=== PATIENT | female | born 1940 | race Caucasian/White ===

== ENCOUNTER 2016-10-06 13:10 | Inpatient (IN) | payer MEDICARE, BC ==
[~2016-10-06] VITALS: Ht 167.6 cm; Wt 63.4 kg
[~2016-10-06 13:10] MED LIST: BAYER CHEWABLE81 MG PO; CALCIUM 600+D T1 TA1 PO; CO Q-10100 MG PO; LIPITOR20 MG PO; MULTIPLE VITAMI1 TA1 PO; PRILOSEC20 MG PO
--- NOTE | 2016-10-06 16:02 | NUR ---
AMBULATES WITH HOSPITAL STAFF TO ROOM WITH DAUGHTER. DENIES NEEDS AT PRESENT TIME. WHEN I WALKED INTO THE ROOM SHE HAD JUST USED THE RESTROOM, INSTRUCTED NEED IN UA AND CULTURE, NEED TO PLACE MARADIAGA CATH. PATIENT IS AWARE OF THIS. WILL ADMIT.
[2016-10-06] MEDS ORDERED: CELEXA20 MG PO (16:12)
[2016-10-06] MEDS ORDERED: CULTURELLE1 CAP PO (16:12)
[2016-10-06] MEDS ORDERED: RED YEAST RICE600 MG PO (16:13)
[2016-10-06 16:43] VITALS: BP 117/81; Ht 167.6 cm; Wt 63.4 kg
[2016-10-06 16:54] LABS: EOSINOPHILS 3.1 % (0-7); HEMATOCRIT 34.1 % (36.0-48.0); HEMOGLOBIN 10.6 g/dL (12-16); IMMATURE GRANULOCYTES 0.4 % (0-5); LYMPHOCYTES 21.9 % (15-50); MCH 27.6 pg (26.0-34.0); MCHC 31.1 g/dL (31.0-37.0); MCV 88.8 fL (80.0-100.0); MEAN PLATELET VOLUME 10.4 fL (7.4-10.4); MONOCYTES 15.7 % (2-11); NEUTROPHILS 57.9 % (40-80); PLATELET COUNT 252 10x3/uL (130-400); RBC 3.84 10x6/uL (4.00-5.40); RDW 14.1 % (11.5-14.5); WBC 5.2 10x3/uL (4.8-10.8)
[2016-10-06 17:29] LABS: APPEARANCE CLEAR (CLEAR); BILIRUBIN NEGATIVE (NEGATIVE); COLOR YELLOW (YELLOW); GLUCOSE NEGATIVE (NEGATIVE); KETONE NEGATIVE (NEGATIVE); LEUKOCYTE ESTERASE NEGATIVE (NEGATIVE); NITRITE NEGATIVE (NEGATIVE); PROTEIN NEGATIVE (NEGATIVE); UROBILINOGEN NORMAL (NORMAL)
[2016-10-06 17:48] LABS: ALBUMIN 2.8 g/dL (3.4-5.0); ANION GAP 13.2 mmol/L (8-16); BILIRUBIN - TOTAL 0.28 mg/dL (0.2-1.3); CALCIUM 8.9 mg/dL (8.5-10.1); CREATININE - SERUM 1.3 mg/dL (0.6-1.3); POTASSIUM - SERUM 4.2 mmol/L (3.5-5.1); PROTEIN - SERUM 5.2 g/dL (6.4-8.2); THYROID STIMULATING HORMONE 3.51 uIU/mL (0.36-3.74)
--- NOTE | 2016-10-06 18:21 | NUR ---
ON HEART MONITOR SHOWING SR, HR 68. BILATERAL SCD'S PLACED ORDERED. ON BEDREST.
--- NOTE | 2016-10-06 19:30 | NUR ---
IN BED VISITING WITH DAUGHTER AT BEDSIDE. ALERT AND ORIENTED X3, RESP EVEN AND UNLAB ON ROOM AIR, DOES HAVE O2 @L NC IF NEEDED. TELEMETRY IN PLACE SHOWING HR SR PER FIG WASHER. LEFT AC IV INTACT WITH NO R/S NOTED AT SITE. IV FLUID INFUSING W/O DIFF VIA PUMP AT 40CC/HR. MAURA WELL. MARADIAGA CATH INTACT AND PATENT WITH YELLOW URINE NOTED IN BAG. BILAT SCDS IN USE TO LOWER LEGS, MAURA WELL. VERBALIZED UNDERSTANDING ABOUT USING C/L FOR ASSISTANCE. 24 HOUR URINE IN PROGRESS WITH MARADIAGA BAG RESTING IN ICE AT BEDSIDE. HOB UP SR UP X2, C/L IN REACH. CONTINUE TO MONITOR.
[2016-10-06 20:00] VITALS: BP 157/67
[2016-10-07] VITALS: BP 138/76
--- NOTE | 2016-10-07 01:34 | NUR ---
AWAKE ALERT,WORRIED THAT MARADIAGA CATH MAY BE LEAKING. PLACEMENT CHECKED, NO LEAKAGE NOTED AT THIS TIME. MAURA WELL. DENIES OTHER NEEDS. HOB FLAT, SR UP X2, C/L IN REACH. BOX ALARM ATTACHED AND WORKING, YELLOW BAND IS ON WRIST. BED IS IN LOWEST POSITION AND LOCKED. MARADIAGA BAG REMAINS ON ICE. CONTINUE TO MONITOR.
[2016-10-07 04:00] VITALS: BP 135/66
[2016-10-07 06:11] LABS: ANION GAP 11.3 mmol/L (8-16); CALCIUM 8.4 mg/dL (8.5-10.1); CREATININE - SERUM 1.4 mg/dL (0.6-1.3); POTASSIUM - SERUM 4.3 mmol/L (3.5-5.1)
--- NOTE | 2016-10-07 07:21 | NUR ---
PT SITTING UP IN BED DENIES NEEDS WILL CONT TO MONITOR.
[2016-10-07 07:49] VITALS: BP 133/66
--- NOTE | 2016-10-07 09:38 | NUR ---
TALKED TO MAMIE IN [facility]. THE ORDER FOR THE RENAL SCAN WAS PUT IN FOR THIS AFTERNOON. DR PLATT WANTED THE RENAL SCAN IN THE AM. CALLED TO ASK IF WE COULD RESCHEDULE SHE SAID SHE WOULD CALL ME BACK.
[2016-10-07 12:36] VITALS: BP 125/64
--- NOTE | 2016-10-07 14:49 | NUR ---
Patient Name: DIANA GRIMALDO Admission Status: Elective Accout number: [id number] Admission Date: 10-06-2016 : 1940 Admission Diagnosis: Attending: HEENA Current LOS: 1 Anticipated DC Date: 10-08-2016 Planned Disposition: Home Primary Insurance: MEDICARE A & B Discharge Planning Comments: * Is the patient Alert and Oriented? Yes 0 * How many steps to enter\exit or inside your home? NONE 0 * PCP DR. PLATT 0 * Pharmacy [facility] 0 * Preadmission Environment Home Alone 0 * ADLs Independent 0 * Equipment None 0 * Other Equipment [facility] - [phone] 0 * List name and contact numbers for known caregivers / representatives who currently or will assist patient after discharge: ENEDINA CUELLO, DAUGHTER, 0 * Community resources currently utilized None 0 * Please name any agencies selected above. NONE 0 * Additional services required to return to the preadmission environment? No 0 * Can the patient safely return to the preadmission environment? Yes 0 * Has this patient been hospitalized within the prior 30 days at any hospital? No 0 CM MET WITH PT AND DAUGHTER IN ROOM TO DISCUSS DISCHARGE PLANNING AND NEEDS. PT REPORTS LIVING AT HOME INDEPENDENTLY AND ALONE. PT HAS NO MEDICAL EQUIPMENT AND NO OUTSIDE SERVICES ASSISTING IN THE HOME. CM DISCUSSED AVAILABILITY OF HOME HEALTH, REHAB SERVICES AND MEDICAL EQUIPMENT. PT DENIES NEED OF HOME HEALTH OR REHAB SERVICES; PT REPORTS SHE WILL BE LEARING TO SELF CATHETER FROM THE NURSE BEFORE GOING HOME. PT HAS NO PREFERENCE ON PROVIDER FOR HER CATHETERS. PT REPORTS HER DAUGHTER WILL PICK HER UP FOR DISCHARGE HOME. CM CALLED [facility] IN [facility], , WAS ADVISED THEY DO NOT STOCK 16 LIBYAN CATHETERS AND WOULD NEED A DOCTORS ORDER TO ORDER THEM AND IT WOULD BE NEXT TUESDAY AT THE EARLIEST TO GET THEM IN. CM CALLED [facility], [facility], [facility] AND [facility], [place], NONE OF WHICH PROVIDE HOME CATHETERS. CM CALLED [employer] WHO STOCKS 16 LIBYAN CATHETERS IN BOXES OF 30 AND REQUIRE CHART NOTES DETAILING REASON FOR NEED, SIGNED PRESCRIPTION AND WILL REQUIRE A DETAILED WRITTEN ORDER SIGNED FOR INSURANCE AUTHORIZATION THAT [facility] WILL SUPPLY FOR SIGNATURE. CM SPOKE TO LOAN SERVICING SPECIALIST WHO SPOKE TO DR. MIN'S NURSE AND OBTAINED A SUPPLY OF 30 CATHETERS AND LUBRICANT FOR PT'S USE AT HOME. CM TO FOLLOW AND ASSIST NEEDED. Air Conditioning Coil Assembler: Yaw Luna
--- NOTE | 2016-10-07 16:18 | NUR ---
WENT OVER SELF CATH TEACHING. SPENT >30 MINUTES TALKING WITH PT AND PT DAUGHTER. PT VERBALIZES UNDERSTANDING ALSO GIVEN WRITTEN INSTRUCTIONS ON HOW TO SELF CATH. PT TOLD ME THAT LAST NIGHT THE EQUIPMENT WORKER DUMPED OUT HER URINE IN THE TOILET, SHE TOLD DAYA RN ON DUTY. NOTHING WAS DONE. PAGING MICHAEL MENDOZA FURNITURE SERVICER FOR RENAL TO SEE WHAT THEY WANT TO DO.
[2016-10-07 16:21] VITALS: BP 145/68
--- NOTE | 2016-10-07 16:30 | NUR ---
TALKED WITH MICHAEL MENDOZA. SAID TO RESTART 24 HOUR URINE. WILL BE FINSIHED TONIGHT AT 9:30 PM SINCE URINE WAS LOST.
--- NOTE | 2016-10-07 18:18 | NUR ---
PT SITTING UP IN BED DENIES NEEDS. EXPLAINED TO PT THAT CATHETER NEEDS TO STAY IN UNTIL 24 HOUR URINE COMPLETED AT 9:30 PM PT VERBALIZES UNDERSTANDING.
[2016-10-07 20:00] VITALS: BP 145/74
--- NOTE | 2016-10-07 21:40 | NUR ---
10 cc CLEAR FLUID REMOVED FROM MARADIAGA CATH, BULB DEFLATED AND CATH REMOVED AT THIS TIME. CATH INTACT UPON REMOVAL. PT MAURA WELL. 24 HOUR URINE COMPLETED AND SENT TO LAB AT THIS TIME.
[2016-10-08] VITALS: BP 121/67
[2016-10-08 04:00] VITALS: BP 139/85
--- NOTE | 2016-10-08 06:16 | NUR ---
PT HAS VOIDED 3 TIMES SINCE MARADIAGA REMOVED. PT ABLE TO DO THE STRAIGHT CATH WITHOUT COMPLICATION. APPROX 50 CC OUT POST VOID RESIDUAL EACH TIME. WILL CONT TO MONITOR
[2016-10-08 06:40] LABS: ANION GAP 11.7 mmol/L (8-16); CALCIUM 8.5 mg/dL (8.5-10.1); CARBON DIOXIDE 28.2 mmol/L (21.0-32.0); CREATININE - SERUM 1.3 mg/dL (0.6-1.3); POTASSIUM - SERUM 3.9 mmol/L (3.5-5.1)
--- NOTE | 2016-10-08 07:33 | NUR ---
PT SITTING UP IN BED DENIES NEEDS DAUGHTER AT BEDSIDE WILL CONT TO MONITOR.
[2016-10-08 08:13] VITALS: BP 157/71
--- NOTE | 2016-10-08 10:43 | NUR ---
WENT OVER DC PAPERWORK WITH PT. PT VERBALIZES UNDERSTANDING. DC TELE. DC PIV WITH CATHETER TIP INTACT. VOLUNTEER WHEELED PT OUT TO FRONT ENTRANCE.
--- NOTE | 2016-10-08 10:53 | NUR ---
Patient Name: DIANA GRIMALDO Encounter No: [id number] : 1940 Primary Insurance: MEDICARE A & B Anticipated DC Date: 10-08-2016 Planned Disposition: Home DCP follow-up note: CM MET WITH PT IN ROOM TO DISCUSS DISCHARGE NEEDS AND PLANNING. CM DISCUSSED AVAILABILITY OF HOME HEALTH, REHAB SERVICES AND MEDICAL EQUIPMENT. PT DENIES DISCHARGE NEEDS AND HAS CATHETERS PROVIDED BY THE DOCTORS OFFICE IN SUFFICIENT SUPPLY FOR TID CATH UNTIL HER FOLLOWUP UROLOGY APPOINTMENT 10-15-16. DAUGHTER TO TRANSPORT HOME AT DISCHARGE. IMPORTANT MESSAGE FROM MEDICARE PROVIDED AND EXPLAINED. Yaw Luna, CASE MANAGEMENT
--- NOTE | 2016-10-11 07:41 | DS ---
PATIENT:DIANA DAVID :[birth year] MEDICAL RECORD: [id number] DISCHARGE SUMMARY ADMISSION DATE: 10/06/16 DISCHARGE DATE: 10/08/16 HISTORY OF PRESENT ILLNESS: Ms. David is a very pleasant 76-year-old white female that I follow with hypertension. She has had no recent hospitalizations. She does have a history of urinary incontinence, has been evaluated in the past by urology at [facility] with no therapy and has been seen by me on a yearly basis. She appeared in the office this week with a complaint of increasing urinary urgency, rising creatinine, worsening edema and examination in the office revealed a bladder palpable to the umbilicus and she was admitted with presumed obstructive uropathy. HOSPITAL COURSE: The patient on CT had marked hydronephrosis bilaterally with marked bladder distention. Dowell catheter was placed and urinary drainage was successful. Creatinine did improve and her last creatinine was 1.3. Seen by Dr. Newman of neurology and he recommended self cath and the patient did well with instruction with this and will go home with a TID self cath schedule. During this time, she had an echocardiogram that was negative with no evidence of heart disease as a cause of her edema. She had a mildly elevated urinary protein. She was ambulatory at the time of discharge, we put her on timed cath schedule and she was otherwise back to baseline at the time of discharge. DISCHARGE DIAGNOSES: 1. Obstructive uropathy due to presumed neurogenic bladder. 2. Acute renal insufficiency on the basis of obstructive uropathy. 3. Hypertension. 4. Edema. 5. Acute chronic kidney disease stage III. PLAN: The patient will be discharged today. I placed her on timed self caths on a t.i.d. scheduled. She will resume her home medications. She will follow up with Dr. Newman and myself in the office. All the above was reviewed with the patient and her daughter. TRANSINT:[id number] Voice Confirmation ID: [id number] DOCUMENT ID: [id number] FRANSISCO PLATT MD at 0741 CC: [id number] DICTATION DATE: 10/08/16 0808 WELL REACTIVATOR OPERATOR: 10/09/16 0027 DIS IN 10/08/16 [id number] [place] [address]
--- NOTE | 2016-10-18 10:08 | EC ---
PATIENT:DIANA GRIMALDO DATE OF SERVICE: 10/06/16 SEX: F MEDICAL RECORD: [id number] DATE OF : [birth year] LOCATION:D.M2 D.213 AGE OF PATIENT: 76 ADMISSION DATE: 10/06/16 REFERRING PHYSICIAN: INTERPRETING PHYSICIAN: MAURICE MOYA MD ECHOCARDIOGRAM REPORT ECHO CHARGES 4 ECHO COMPLETE CLINICAL DIAGNOSIS: EDEMA/EFFUSIONS ECHOCARDIOGRAPHIC MEASUREMENTS (adult normal given) AC root (d.<3.7cm) 3.2 LV Septum d (<1.2 cm> 1.4 Valve Excursion 1.6 LV Septum (systole) 1.6 Left Atria (s.<4.0cm> 3.8 LVPW d(<1.2cm) 1.2 RV (d.<2.3cm) 2.9 LVPW (sytole) 1.7 LV diastole(<5.6CM) 5.6 MV E-F(>70mm/sec) LV systole 3.5 LVOT Diameter 1.5 MV exc.(>10mm) 0.9 Est.ejection fraction (50-75%) Pericardial Effusion N DOPPLER: LVIT A 122 E 102 LA RVSP 38 LVOT 133 AOP1/2T Asc. Ao 171 RVOT 76 RA PA 119 AV Gradient Peak 11.65 AV Mean 5.82 AV Area 1.9 MV Gradient Peak MV Mean MV Area COMMENTS: Forestry Support Specialist: Tj LE Nursing Scheduler:2 Dr. Blackmon TAPE# PACS DATE OF SERVICE: 10/07/2016 Echocardiogram FINDINGS: 1. Left ventricular chamber size is within normal limits. Left ventricular systolic function is normal. Overall ejection fraction estimated at 60%. 2. Left atrium, right atrium, and right ventricular chamber sizes are within normal limits. 3. Valvular structures have normal structure and motion. ECHOCARDIOGRAM REPORT [id number] DIANA GRIMALDO 4. Doppler interrogation reveals mild mitral regurgitation, mild tricuspid regurgitation, no other valvular insufficiency or stenosis and pulmonary systolic pressure is normal estimated at 38 mmHg. 5. No evidence of pericardial effusion or left ventricular thrombus. TRANSINT:[id number] Voice Confirmation ID: [id number] DOCUMENT ID: [id number] MAURICE MOYA MD at 1008 CC: [id number] DICTATION DATE: 10/07/16 1202 DEICER INSPECTOR PNEUMATIC: 10/07/16 1712 DIS IN 10/08/16 [facility] [address] [place] [address]
== END 2016-10-08 10:55 | disposition home or self-care (01) | DRG 699 ==
LOC: D.CT 13:10 → D.M2 15:41 → D.SDCHOLD 15:41 → D.M2 15:47
PROVIDERS: Urology; ADMIT Internal Medicine Nephrology
PROC: 0T9B70Z Drainage of Bladder with Drainage Device, Via Natural or Artificial Opening (ICD-10-PCS; principal; 2016-10-06)
DX: N31.9 Neuromuscular dysfunction of bladder, unspecified (principal); N13.30 Unspecified hydronephrosis; N28.9 Disorder of kidney and ureter, unspecified; I12.9 Hypertensive chronic kidney disease with stage 1 through stage 4 chronic kidney disease, or unspecified chronic kidney disease; N18.3 Chronic kidney disease, stage 3 (moderate); F41.9 Anxiety disorder, unspecified; F32.9 Major depressive disorder, single episode, unspecified; K59.09 Other constipation

== ENCOUNTER → 2016-10-11 16:15 | Outpatient (CLI) | payer MEDICARE, BC ==
[2016-10-06 16:43] VITALS: BMI 22.0
[~2016-10-11 16:15] MED LIST changes: +CARAFATE1 G PO; +CELEXA20 MG PO; +CULTURELLE1 CAP PO; +FERROUS SULFAT325 MG PO; +LEVAQUIN250 MG PO; +LEVSIN/ANASP0.125 MG PO; +RED YEAST RICE600 MG PO
== END | disposition home or self-care (01) ==
LOC: D.LABREF 16:15
DX: R31.9 Hematuria, unspecified (principal)

== ENCOUNTER 2016-10-13 18:36 | Inpatient (IN) | payer MEDICARE, BC ==
[~2016-10-13] VITALS: Ht 167.6 cm; Wt 61.5 kg
[~2016-10-13 18:36] MED LIST changes: -CARAFATE1 G PO; -FERROUS SULFAT325 MG PO; -LEVAQUIN250 MG PO; -LEVSIN/ANASP0.125 MG PO
[2016-10-13 20:57] LABS: APPEARANCE HAZY (CLEAR); BILIRUBIN NEGATIVE (NEGATIVE); COLOR YELLOW (YELLOW); GLUCOSE NEGATIVE (NEGATIVE); KETONE NEGATIVE (NEGATIVE); LEUKOCYTE ESTERASE 2+ (NEGATIVE); NITRITE NEGATIVE (NEGATIVE); PROTEIN TRACE mg/dL (NEGATIVE); SPECIFIC GRAVITY 1.015 (1.005-1.020); UROBILINOGEN NORMAL (NORMAL)
[2016-10-13 20:59] LABS: BACTERIA MODERATE /hpf (NONE SEEN); EPITHELIAL CELLS 0-5 /hpf (0-5)
[2016-10-13 23:08] LABS: BASOPHILS 0.3 % (0.0-2.0); EOSINOPHILS 0.5 % (0-7); HEMOGLOBIN 9.4 g/dL (12-16); IMMATURE GRANULOCYTES 0.3 % (0-5); LYMPHOCYTES 6.5 % (15-50); MCH 27.9 pg (26.0-34.0); MCHC 32.4 g/dL (31.0-37.0); MCV 86.1 fL (80.0-100.0); MEAN PLATELET VOLUME 10.5 fL (7.4-10.4); MONOCYTES 8.5 % (2-11); NEUTROPHILS 83.9 % (40-80); RBC 3.37 10x6/uL (4.00-5.40); RDW 14.4 % (11.5-14.5); WBC 3.9 10x3/uL (4.8-10.8)
[2016-10-13 23:11] LABS: PLATELET COUNT 188 10x3/uL (130-400)
[2016-10-13 23:29] LABS: ALBUMIN 2.2 g/dL (3.4-5.0); ANION GAP 15.2 mmol/L (8-16); BILIRUBIN - TOTAL 0.22 mg/dL (0.2-1.3); CALCIUM 8.1 mg/dL (8.5-10.1); CARBON DIOXIDE 20.8 mmol/L (21.0-32.0); CREATININE - SERUM 1.6 mg/dL (0.6-1.3); PROTEIN - SERUM 5.2 g/dL (6.4-8.2)
--- NOTE | 2016-10-13 23:45 | NUR ---
PT ARRIVED TO FLOOR FROM ER TO ROOM 2121. ALERT/ORIENTED. ADMISSION ASSESSMENT AND HISTORY COMPLETED. HOME MEDS REVIEWED.
[2016-10-14] VITALS (7 sets, daily range): BP systolic 88–109; BP diastolic 50–56; BMI 21.9
--- NOTE | 2016-10-14 02:55 | NUR ---
INITIAL DOSE OF IV LEVAQUIN UP AND INFUSING. PT RESTING. DAUGHTER INITIALLY STAYING THE NIGHT, THEN DECIDED TO GO HOME.
--- NOTE | 2016-10-14 06:22 | NUR ---
MARADIAGA PATENT TO BEDSIDE DRAIN BAG, NO HEMATURIA NOTED, YELLOW URINE/CLOUDY. ASSISTED PT UP AND TO THE BATHROOM TO TRY AND HAVE A BM.
--- NOTE | 2016-10-14 09:53 | NUR ---
TELEMETRY SR. HR 74. SCDS APPLIED BILAT PER ORDER. WILL CONT. PLAN OF CARE.
[2016-10-14 10:28] LABS: % SATURATION 4 % (15-55); IRON 9 ug/dl (35-150); TOTAL IRON BIND CAPACITY 222 ug/dl (260-445); UNSAT IRON BIND CAPACITY 213 ug/dl (150-375)
--- NOTE | 2016-10-14 19:40 | NUR ---
RESUMED CARE OF PT, LYING IN BED RESPIRATIONS EVEN AND UNLABORED ON ROOM AIR. PLAN OF CARE DISCUSSED. MARADIAGA TO GRAVITY. 69 SR ON TELEMETRY. CALL LIGHT IN REACH. WILL CONTINUE TO MONITOR. SEE NURSE ASSESSMENT.
[2016-10-15] VITALS: BP 121/73
--- NOTE | 2016-10-15 03:34 | NUR ---
IV OUT WITH TIP INTACT. 20 GAUGE TO LEFT FOREARM X 2 STICKS. LEVAQUIN INFUSING @ 50ML/HR.
--- NOTE | 2016-10-15 03:36 | NUR ---
BIOLOGY MANAGER AT BEDSIDE TO OBTAIN VITALS, CALL LIGHT IN REACH. WILL CONTINUE WITH PLAN OF CARE.
[2016-10-15 04:00] VITALS: BP 121/73
[2016-10-15 06:01] LABS: BASOPHILS 0.9 % (0.0-2.0); HEMATOCRIT 29.7 % (36.0-48.0); HEMOGLOBIN 9.4 g/dL (12-16); IMMATURE GRANULOCYTES 0.5 % (0-5); LYMPHOCYTES 17.2 % (15-50); MCH 27.7 pg (26.0-34.0); MCHC 31.6 g/dL (31.0-37.0); MCV 87.6 fL (80.0-100.0); MEAN PLATELET VOLUME 10.8 fL (7.4-10.4); MONOCYTES 14.2 % (2-11); NEUTROPHILS 64.2 % (40-80); PLATELET COUNT 205 10x3/uL (130-400); RBC 3.39 10x6/uL (4.00-5.40); RDW 14.8 % (11.5-14.5)
[2016-10-15 06:07] LABS: WBC 5.7 10x3/uL (4.8-10.8)
[2016-10-15 06:37] LABS: ANION GAP 13.9 mmol/L (8-16); CALCIUM 8.4 mg/dL (8.5-10.1); CARBON DIOXIDE 22.5 mmol/L (21.0-32.0); CREATININE - SERUM 1.4 mg/dL (0.6-1.3); POTASSIUM - SERUM 4.4 mmol/L (3.5-5.1)
--- NOTE | 2016-10-15 06:40 | NUR ---
SHOWERED AND LINENS CHANGED. NO CHANGES FROM PREVIOUS ASSESSMENT.
--- NOTE | 2016-10-15 09:40 | NUR ---
TELEMETRY SR. IV PATENT. MARADIAGA INTACT. NPO FOR SURGERY. WILL CONT. PLAN OF CARE.
[2016-10-15 09:52] VITALS: BP 113/60
[2016-10-15 10:20] LABS: FOLATE (FOLIC ACID) - SERUM >20.0 ng/mL (>3.0)
[2016-10-15 13:19] VITALS: BP 119/71
--- NOTE | 2016-10-15 13:20 | NUR ---
PRE-OPS GIVEN. TO OR BY STRETCHER.
[2016-10-15 13:29] VITALS: Ht 167.6 cm; Wt 61.5 kg
--- NOTE | 2016-10-15 13:38 | NUR ---
Patient Name: DIANA GRIMALDO Admission Status: ER Accout number: [id number] Admission Date: 10-14-2016 : 1940 Admission Diagnosis:TUBULO-INTERSTITIAL NEPHRITIS, NOT SPCF ACUTE OR CHR Attending: BENJI Current LOS: 1 Anticipated DC Date: Planned Disposition: Home Primary Insurance: MEDICARE A & B Discharge Planning Comments: * Is the patient Alert and Oriented? Yes 0 * How many steps to enter\exit or inside your home? NONE 0 * PCP DR. PLATT 0 * Pharmacy [facility] ON [address] 0 * Preadmission Environment Home Alone 0 * ADLs Independent 0 * Equipment Catheter Supplies 0 * Other Equipment [facility] - MEDICAL EQUIPMENT PROVIDER PREFERENCE 0 * List name and contact numbers for known caregivers / representatives who currently or will assist patient after discharge: ENEDINA CUELLO, DTR, 0 * Community resources currently utilized None 0 * Please name any agencies selected above. NONE 0 * Additional services required to return to the preadmission environment? No 0 * Can the patient safely return to the preadmission environment? Yes 0 * Has this patient been hospitalized within the prior 30 days at any hospital? Yes 0 CM MET WITH PT IN ROOM TO DISCUSS DISCHARGE PLANNING AND NEEDS. PT REPORTS LIVING AT HOME INDEPENDENTLY AND ALONE. PT HAS CATHETER SUPPLIES, PT PREFERS [facility] IN [facility] FOR ANY NEEDED MEDICAL EQUIPMENT. PT HAS NO OUTSIDE SERVICES ASSISTING IN THE HOME. CM DISCUSSED AVAILABILITY OF HOME HEALTH, REHAB SERVICES AND MEDICAL EQUIPMENT. PT DENIES DISCHARGE NEEDS, REPORTS HER FAMILY WILL PICK HER UP FOR DISCHARGE HOME. PT PLANS TO DISCHARGE HOME, DENIES DISCHARGE NEEDS AT THIS TIME. CM TO FOLLOW AND ASSIST NEEDED. Support Services Rep: Yaw Luna
--- NOTE | 2016-10-15 15:05 | NUR ---
100CC OF PINK CLEAR URINE IN MARADIAGA BAG ON ADMIT
--- NOTE | 2016-10-15 15:59 | NUR ---
BACK FROM OR. VS WNL. WILL CONT. PLAN OF CARE.
[2016-10-15 16:38] VITALS: BP 171/75
--- NOTE | 2016-10-15 19:00 | NUR ---
RECEIVED REPORT AND ASSUMED PT CARE FROM DAY SHIFT NURSE @ THIS TIME.
[2016-10-15 20:00] VITALS: BP 119/66
[2016-10-16 06:29] VITALS: BP 132/67
[2016-10-16 07:02] LABS: BASOPHILS 0.5 % (0.0-2.0); EOSINOPHILS 2.8 % (0-7); HEMATOCRIT 30.8 % (36.0-48.0); HEMOGLOBIN 9.7 g/dL (12-16); IMMATURE GRANULOCYTES 0.3 % (0-5); LYMPHOCYTES 13.8 % (15-50); MCH 27.6 pg (26.0-34.0); MCHC 31.5 g/dL (31.0-37.0); MCV 87.7 fL (80.0-100.0); MEAN PLATELET VOLUME 10.5 fL (7.4-10.4); MONOCYTES 16.3 % (2-11); NEUTROPHILS 66.3 % (40-80); PLATELET COUNT 245 10x3/uL (130-400); RBC 3.51 10x6/uL (4.00-5.40); RDW 14.7 % (11.5-14.5); WBC 6.2 10x3/uL (4.8-10.8)
[2016-10-16 07:12] LABS: ANION GAP 14.5 mmol/L (8-16); CALCIUM 8.3 mg/dL (8.5-10.1); CARBON DIOXIDE 22.7 mmol/L (21.0-32.0); CREATININE - SERUM 1.2 mg/dL (0.6-1.3); POTASSIUM - SERUM 4.2 mmol/L (3.5-5.1)
[2016-10-16 08:32] VITALS: BP 143/70
[2016-10-16 12:43] VITALS: BP 117/68
--- NOTE | 2016-10-16 13:03 | OP ---
PATIENT NAME: DIANA GRIMALDO MEDICAL RECORD: [id number] :[birth year] LOCATION:D. D.2 ADMISSION DATE:10/14/16 SURGEON: FRANSISCO MIN MD DATE OF OPERATION: 10/15/2016 SURGEON: Fransisco Min M.D. ANESTHESIA: General anesthesia by Alexandro Kapadia MD and Steffen Rouse CRNA. FINDINGS: Bilateral UPJ obstruction on retrograde pyelogram. PROCEDURE: Cystoscopy, bilateral retrograde pyelogram, left ureteral stent insertion 6-Armenian x 24 cm without string attached. SPECIMENS: None. PREOPERATIVE DIAGNOSES: Left ascending pyelonephritis with Escherichia coli, bilateral ureteropelvic junction obstruction. ESTIMATED BLOOD LOSS: None. CLINICAL HISTORY: This is a 76-year-old female whom I have seen previously in consultation. She has a bilateral congenital UPJ obstruction, which is documented by CT, ultrasound and Lasix renal scan. She also had issues with idiopathic urinary retention and chronic constipation. She has been treated for this with self-intermittent catheterization. I saw her at the beginning of this week when she appeared at my office with dysuria and gross hematuria, most likely from a UTI. I sent the urine for culture and I started her empirically on Bactrim. The culture result eventually grew E. coli, which is resistant to Bactrim, but sensitive to Levaquin. In the interim, she developed a left flank pain, fevers up to 39 degrees centigrade with the rigors and chills. She was admitted for a left pyelonephritis and blood and urine cultures were drawn. The urine culture grew E. coli resistant to Bactrim. Blood cultures, I think are still pending. After about 1 day of IV Levaquin, her fevers have ceased. However, she does have chronic obstruction of the left kidney and therefore, she will have insertion of a left ureteral stent to be sure that the kidney and the infected urine there in can drain out. Since she already had Levaquin on the floor, we did not give her any further antibiotics while she is here in the OR. DESCRIPTION OF PROCEDURE: The patient was given induction of general anesthesia. She was placed in the dorsal lithotomy position and prepped and draped. A 21-Armenian cystoscope with 30-degree lens was used for visualization. The bladder mucosa shows some signs of irritation from the cystitis and the indwelling Dowell catheter that she has had while she is in the hospital. No bladder tumors were seen. She has single ureteral orifices on each side. The right ureteral orifice was intubated with a 5-Armenian open-ended ureteral catheter and contrast diluted 1:1 with normal saline was used for retrograde pyelogram. This shows a normal caliber right ureter with a UPJ obstruction on the right side and significant dilation of the renal calices and pelvis. The calices are blunted and I truly blown out. Since the right side is asymptomatic, we are leaving it alone. On the left side, the procedure was repeated and this showed further tortuosity of the ureter near the UP junction, but no obvious dilation of the ureter. The left side renal pelvis was even further dilated compared to the right side. Through the catheter, we inserted a Glidewire up past the UPJ obstruction and into the renal pelvis. The ureteral OPERATIVE REPORT [id number] DIANA GRIMALDO catheter was then removed and over the Glidewire, we inserted a 6-Armenian x 24 cm ureteral stent. The stent was seen to coil up in the renal pelvis. The distal end of the stent was pushed into the bladder using a pusher. The wire was entirely removed. Fluoroscopy confirmed that the stent was in good position. The bladder was drained through the scope and then the Dowell catheter was reinserted. The patient was awakened and brought to recovery room. TRANSINT:[id number] Voice Confirmation ID: [id number] DOCUMENT ID: [id number] FRANSISCO MIN MD at 1303 CC: [id number] DICTATION DATE: 10/15/16 1505 STAGE SET UP WORKER: 10/15/16 210 [facility] [address] [place] [address]
[2016-10-16 16:00] VITALS: BP 134/68
--- NOTE | 2016-10-16 19:04 | NUR ---
RECEIVED PT IN BED AAOX 4 RESP UNLABORED NAD NOTED
--- NOTE | 2016-10-16 19:15 | NUR ---
INITIAL ROUNDS MADE. PT SITTING UP IN BED WITH FAMILY IN ROOM WATCHING TV. DENIES NEEDS OR C/O AT THIS TIME. WILL CONT TO MONITOR.
[2016-10-16 20:30] VITALS: BP 137/64
[2016-10-17 00:30] VITALS: BP 127/57
--- NOTE | 2016-10-17 00:55 | NUR ---
URBAN RENEWAL MANAGER AT BEDSIDE FOR VS, NEEDS ADDRESSED. CALL LIGHT IN REACH. WILL CONT TO MONITOR.
[2016-10-17 04:30] VITALS: BP 141/69
--- NOTE | 2016-10-17 05:52 | NUR ---
MARADIAGA DC WITH TIP INTACT. NO NEEDS OR C/O VOICED. WILL CONT TO MONITOR.
--- NOTE | 2016-10-17 06:43 | NUR ---
RESTING WELL WITH EYES CLOSED, CONT TO MONITOR.
--- NOTE | 2016-10-17 07:30 | NUR ---
RETING QUIETLY RESP UNLABORED SKIN W/D DENIES ANY NEEDS OR DISCOMFORT AT THIS TIME NAD NOTED
[2016-10-17 08:00] VITALS: BP 128/68
[2016-10-17] MEDS ORDERED: LEVSIN/ANASP0.125 MG PO (10:06)
[2016-10-17] MEDS ORDERED: LEVAQUIN250 MG PO (10:07)
[2016-10-17] MEDS ORDERED: FERROUS SULFAT325 MG PO (10:08)
--- NOTE | 2016-10-17 11:45 | NUR ---
REVIEWED DISCHARGE INSTRUCTIONS WITH PT AND DAUGHTER BOTH STATE UNDERSTANDING COPY GIVEN TO PT SALINE LOCK DCD TO LFA WITH 22 GA IV CATH INTACT NO REDNESS OR EDEMA AT SITE PT DICHARGED HOME LEFT UNIT VIA W/C IN STABLE CONDITION WITH ALL PERSONAL BELONGINGS
== END 2016-10-17 11:45 | disposition home or self-care (01) | DRG 694 ==
LOC: D.ER 18:36 → D.M2 23:04 → OBSVTIME 23:04 → D.M2 23:04
PROVIDERS: Emergency Medicine; Internal Medicine Nephrology; Nurse Practitioner Family; Urology; ADMIT Internal Medicine Nephrology
PROC: BT141ZZ Fluoroscopy of Kidneys, Ureters and Bladder using Low Osmolar Contrast (ICD-10-PCS; principal; 2016-10-15 13:00)
PROC: 0T778DZ Dilation of Left Ureter with Intraluminal Device, Via Natural or Artificial Opening Endoscopic (ICD-10-PCS; principal; 2016-10-15 13:00)
DX: N11.1 Chronic obstructive pyelonephritis (principal); N17.9 Acute kidney failure, unspecified; B96.20 Unspecified Escherichia coli [E. coli] as the cause of diseases classified elsewhere; E61.1 Iron deficiency; K59.09 Other constipation; N31.9 Neuromuscular dysfunction of bladder, unspecified

== ENCOUNTER 2016-10-28 05:54 | Day surgery (SDC) | payer MEDICARE, BC ==
[2016-10-26 11:25] LABS: HEMATOCRIT 35.7 % (36.0-48.0); HEMOGLOBIN 11.3 g/dL (12-16); MCH 28.1 pg (26.0-34.0); MCHC 31.7 g/dL (31.0-37.0); MCV 88.8 fL (80.0-100.0); RBC 4.02 10x6/uL (4.00-5.40); RDW 14.6 % (11.5-14.5); WBC 9.2 10x3/uL (4.8-10.8)
[2016-10-26 11:46] LABS: ANION GAP 14.4 mmol/L (8-16); CALCIUM 8.9 mg/dL (8.5-10.1); CARBON DIOXIDE 27.1 mmol/L (21.0-32.0); CREATININE - SERUM 1.3 mg/dL (0.6-1.3); POTASSIUM - SERUM 4.5 mmol/L (3.5-5.1)
[~2016-10-28] VITALS: Ht 167.6 cm; Wt 59.4 kg
[~2016-10-28 05:54] MED LIST changes: +FERROUS SULFAT325 MG PO; +LEVAQUIN250 MG PO; +LEVSIN/ANASP0.125 MG PO
[2016-10-28] MEDS ORDERED: CARAFATE1 G PO (07:12)
[2016-10-28 07:15] VITALS: Ht 167.6 cm; Wt 59.4 kg
--- NOTE | 2016-10-28 13:02 | OP ---
PATIENT NAME: DIANA GRIMALDO MEDICAL RECORD: [id number] :40 LOCATION:.[facility] ADMISSION DATE: SURGEON: JUAN MIN MD DATE OF OPERATION: 10/28/2016 SURGEON: Juan Min MD ANESTHESIA: General anesthesia by Dr. De La Vega. PREOPERATIVE DIAGNOSIS: Left ureteropelvic junction obstruction. POSTOPERATIVE DIAGNOSIS: Left ureteropelvic junction obstruction. PROCEDURES PERFORMED: Cystoscopy, left ureteral stent removal. FINDINGS: Left ureteropelvic junction obstruction on retrograde pyelogram. SPECIMENS: Left ureteral stent. COMPLICATIONS: None. CLINICAL HISTORY: This is a 76-year-old female, who was recently admitted to hospital with left pyelonephritis following a UTI, which led to ascending pyelonephritis. She has a known left UPJ obstruction. There is also a right UPJ obstruction, but she was asymptomatic on the right side. She has been on oral Levaquin since her hospital discharge. At the time of her pyelonephritis, I inserted a left ureteral stent. The stent now needs to be removed. Also, at the same time, we will try to dilate the left ureteropelvic junction with an Acucise balloon. The patient was given IV Ancef 1 gram IV regional guide to the OR. DESCRIPTION OF PROCEDURE: The patient was given induction of general anesthesia. She was placed in the dorsal lithotomy position and prepped and draped. The 21-Botswanan cystoscope was placed and grasping forceps were used to remove the previous left ureteral stent entirely. A 5-Botswanan open-ended ureteral catheter was then placed in the left ureteral orifice and a retrograde pyelogram was performed by injecting diluted contrast. The contrast was diluted 1:1 with normal saline. This again showed tortuosity of the proximal ureter just distal to the UP junction. By pushing up the ureteral catheter just to the level of the end of the tortuous area, I was able to get a Sensor wire through the tortuosity into the UP junction. At this point, the ureteral catheter was removed, leaving the Sensor wire in place. We then tried to introduce the Acucise balloon dilation catheter. However, it would not pass through the bridge of the cystoscope that we have. We have no other bridge designs except a duplex bridge. Therefore, attempts to keep passing the Acucise catheter through the bridge would not work. I therefore took the scope out leaving the wire in. We then reintroduced the scope and I attempted to pass the Acucise balloon adjacent to the scope over the wire. The cutting wire of the Acucise balloon was kept in a lateral position, so it would cut laterally. As we pushed up into the mid ureter, we encountered resistance to further progression of the Acucise balloon and the wire started to buckle. Because of the lack of the bracing by the scope sheath that we would normally have, the wire was basically free from the urethra to the bladder. We could not make any headway. I removed the Acucise balloon. I tried to use a dilator sheath and this got stuck at the UV junction. At this point, I decided to abandon further attempts to proceed with the Acucise balloon as we do not have compatible equipment at the present time. OPERATIVE REPORT [id number] DIANA GRIMALDO We will order new equipment that will be compatible with the Acucise balloon and try this again at a future date. TRANSINT:[id number] Voice Confirmation ID: [id number] DOCUMENT ID: [id number] JUAN MIN MD at 1302 CC: [id number] DICTATION DATE: 10/28/16 1027 NITRATOR OPERATOR: 10/28/16 1109 REG [facility] [address] [id number]
--- NOTE | 2016-10-28 14:47 | NUR ---
1200-PT. ESCORTED VIA WHEELCHAIR TO PERSONAL CAR, LEFT WITH DAUGHTER DRIVING.
== END 2016-10-28 12:00 | disposition home or self-care (01) ==
LOC: D.OPS 05:54 → D.PAN 08:30 → D.OPS 08:30
PROVIDERS: Anesthesiology
DX: N13.5 Crossing vessel and stricture of ureter without hydronephrosis (principal); Z46.6 Encounter for fitting and adjustment of urinary device; Z79.2 Long term (current) use of antibiotics

== ENCOUNTER 2016-11-01 13:39 | Inpatient (IN) | payer MEDICARE, BC ==
[~2016-11-01] VITALS: Ht 167.6 cm; Wt 53.1 kg
--- NOTE | ~2016-11-01 | OP ---
PATIENT NAME: DIANA GRIMALDO MEDICAL RECORD: [id number] :40 LOCATION:.[facility] D.2312 ADMISSION DATE:11/01/16 SURGEON: SHAHAB PRAJAPATI MD DATE OF OPERATION: 11/16/2016 PREOPERATIVE DIAGNOSES: 1. Gastric mass. 2. Ascites of unknown origin. 3. Neurogenic bladder. 4. Acute kidney injury. 5. Atrial fibrillation. 6. Gastroesophageal reflux disease. POSTOPERATIVE DIAGNOSES: 1. Gastric mass. 2. Ascites of unknown origin. 3. Neurogenic bladder. 4. Acute kidney injury. 5. Atrial fibrillation. 6. Gastroesophageal reflux disease. PROCEDURE: Diagnostic laparoscopy with omental biopsy. SURGEON: Shahab Prajapati MD. REPORT OF PROCEDURE: The patient's abdomen was prepped and draped in sterile fashion. A cutdown was made above the umbilicus. Electrocautery was used to dissect through the subcutaneous tissues and fascia. Once inside, I could feel around the abdomen that there was very firm omental tissue, 0 Vicryls were placed in the fascia bilaterally. A 12-mm Dagmar port was then inserted and the abdomen was insufflated. A 5-mm trocar was placed in the left upper quadrant and another was placed in the left lower quadrant. An inspection of the abdomen showed no sign of carcinomatosis. There was some ascites present throughout the abdomen, but mainly in the pelvis. As I inspected the stomach, there was external inflammation visible, but no sign of any ulcerations or perforations. I can feel the firm masses within the stomach and they were fairly diffuse, but not constant. I felt around the what appeared to be the duodenum, which was dilated and coming up to the duodenum, there was firm omental tissue. This omental tissue was broken up and there were some very small masses within it. They were about the size of enlarged lymph nodes. A couple of these masses were removed and on close inspection, they did look like lymph nodes and they were very firm. These were both sent off for permanent specimen. I took some pieces of the omentum around that area and inspection of the remainder of the abdomen was difficult because of the thick nature of the omentum and the amount of inflammation from the ascites, but I did not see any evidence of any distinct masses or lesions other than what was present in the lumen of the stomach. At this point, I discontinued the surgery. The midline fascia was closed with interrupted 0 Vicryls times 3. The wounds were then infused with 10 mL of 0.25% Marcaine with epinephrine and then the skin was closed with subcutaneous 5-0 Monocryl. COMPLICATIONS: None. CONDITION: Stable. OPERATIVE REPORT [id number] DIANA GRIMALDO ANESTHESIA: General endotracheal and local. BLOOD LOSS: 30 mL. TRANSINT:[id number] Voice Confirmation ID: [id number] DOCUMENT ID: [id number] SHAHAB PRAJAPATI MD CC: [id number] DICTATION DATE: 11/16/161938 PAPER NOVELTY MAKER: 11/16/162200 ADM IN [facility] [address] [id number]
--- NOTE | ~2016-11-01 | OP ---
PATIENT NAME: DIANA GRIMALDO MEDICAL RECORD: [id number] :40 LOCATION:D. D.2137 ADMISSION DATE:11/01/16 SURGEON: JUAN RAVI MD DATE OF OPERATION: 11/08/2016 PREOPERATIVE DIAGNOSES: 1. Acute malnutrition in need of IV access for total parenteral nutrition 2. Obstructive uropathy. POSTOPERATIVE DIAGNOSES: 1. Acute malnutrition in need of IV access for total parenteral nutrition 2. Obstructive uropathy. PROCEDURE: Insertion of right internal jugular triple lumen central venous catheter. SURGEON: Juan Ravi MD. HOG KILLER: None. BLOOD LOSS: Minimal. ANESTHESIA: Local. COMPLICATIONS: None. The risks, possible complications, and alternatives to the procedure were explained to the patient. She elects to proceed. OPERATIVE COURSE: The patient was seen in her room. The entire procedure was performed in the presence of a female nurse. The patient was positioned in the Trendelenburg position. The right neck was sterilely prepped and draped. A local anesthetic was used to infiltrate the skin and subcutaneous tissues at the base of the right neck. The right internal jugular vein was percutaneously accessed in an antegrade fashion. A guidewire passed easily. A small skin vivian was accomplished. A vessel dilator was used to dilate the subcutaneous tract. A 16-cm triple lumen central venous catheter was inserted to the hub. It was sutured in place times 3. All lumens flushed easily and aspirated dark, nonpulsatile blood. A stat portable chest x-ray is pending. The site was sterilely dressed. TRANSINT:[id number] Voice Confirmation ID: [id number] DOCUMENT ID: [id number] JUAN RAVI MD CC: [id number] DICTATION DATE: 11/08/16 075 USED CAR MANAGER: 11/08/16 1005 ADM IN [facility] [address] [place] [address]
[~2016-11-01 13:39] MED LIST changes: +CARAFATE1 G PO
[2016-11-01 15:12] LABS: APPEARANCE HAZY (CLEAR); BILIRUBIN NEGATIVE (NEGATIVE); COLOR YELLOW (YELLOW); GLUCOSE NEGATIVE (NEGATIVE); KETONE NEGATIVE (NEGATIVE); LEUKOCYTE ESTERASE TRACE (NEGATIVE); NITRITE NEGATIVE (NEGATIVE); PROTEIN TRACE mg/dL (NEGATIVE); SPECIFIC GRAVITY 1.015 (1.005-1.020); UROBILINOGEN NORMAL (NORMAL)
[2016-11-01 15:14] LABS: BACTERIA MANY /hpf (NONE SEEN); WHITE CELLS - URINE >50 /hpf (0-5)
[2016-11-01 15:19] LABS: BASOPHILS 1.5 % (0.0-2.0); EOSINOPHILS 1.7 % (0-7); HEMATOCRIT 32.6 % (36.0-48.0); HEMOGLOBIN 10.3 g/dL (12-16); IMMATURE GRANULOCYTES 0.9 % (0-5); MCH 27.8 pg (26.0-34.0); MCHC 31.6 g/dL (31.0-37.0); MCV 87.9 fL (80.0-100.0); MEAN PLATELET VOLUME 10.4 fL (7.4-10.4); MONOCYTES 15.3 % (2-11); NEUTROPHILS 62.6 % (40-80); PLATELET COUNT 451 10x3/uL (130-400); RBC 3.71 10x6/uL (4.00-5.40); RDW 14.4 % (11.5-14.5); WBC 5.3 10x3/uL (4.8-10.8)
[2016-11-01 15:22] LABS: CREATININE - SERUM 1.7 mg/dL (0.6-1.3)
[2016-11-01 15:23] LABS: ANION GAP 14.3 mmol/L (8-16); CALCIUM 9.4 mg/dL (8.5-10.1); POTASSIUM - SERUM 4.3 mmol/L (3.5-5.1)
[2016-11-01 15:24] LABS: ALBUMIN 2.4 g/dL (3.4-5.0); BILIRUBIN - TOTAL 0.27 mg/dL (0.2-1.3); PROTEIN - SERUM 6.2 g/dL (6.4-8.2)
[2016-11-01 16:13] LABS: CKMB 0.8 U/L (0.0-3.6); CREATINE KINASE 37 UL (21-215); PRO BNP 829 pg/mL (0-450)
[2016-11-01 16:14] LABS: TROPONIN-I < 0.017 ng/mL (0.000-0.060)
[2016-11-01 16:16] LABS: AMYLASE - SERUM 53 U/L (25-115); LIPASE 181 U/L (73-393)
[2016-11-01 21:02] VITALS: BP 125/75
--- NOTE | 2016-11-01 21:27 | NUR ---
PT ARRIVED VIA STRETCHER AWAKE, ALERT, ORIENTED, DAUGHTER AT BEDSIDE. MARADIAGA INSERTED WITHOUT ANY DIFFICULTY WITH 150CC DARK, CONCENTRATED URINE RETURN. PT DENIES ANY ACUTE NEEDS. IV STARTED WITH NS @ 125MLS/HR ORDERED. PT DENIES ANY PAIN. THERE IS GROSS ASCITES PRESENT UPON ASSESSMENT, HYPOACTIVE BOWELS SOUNDS WELL. WILL CONTINUE TO MONITOR CLOSELY. BED LOW, CALL LIGHT IN REACH, SIDE RAILS X 2, HOB 30 DEGREES.
[2016-11-02] VITALS (7 sets, daily range): BP systolic 105–132; BP diastolic 58–79; Ht 167.6 cm; Wt 53.1 kg
--- NOTE | 2016-11-02 04:19 | NUR ---
PT WAS UNABLE TO TOLERATE THE 16FR MARADIAGA, C/O GREAT PAIN AT INSERTION SITE AND MIDWAY INTO URETHRA. PT STATES SHE DOES IN AND OUT CATHS AT HOME AND USES A 14FR CATH. WE DISCUSSED PTS PROCESS WHEN SHE DOES HER CATHS, AND SHE STATES SHE CLEANSES HER HANDS WELL BUT DOES NOT WEAR STERILE GLOVES, AND STATES SHE DOES HAVE DIFFICULTY AT TIMES. WE DISCUSSED THE IMPORTANCE OF KEEPING THE CATH STERILE. AFTER DISCUSSING ALL OPTIONS ABOUT THE PAINFUL MARADIAGA, PT DID OPT TO HAVE A 15FR PLACED, IN WHICH SHE STATES IT IS MORE COMFORTABLE AND A LOT LESS PAINFUL. PT DENIES ANY OTHER NEEDS. CONTINUE TO MONITOR CLOSELY.
--- NOTE | 2016-11-02 05:58 | NUR ---
PT AWAKE, ALERT, ORIENTED, C/O CHRONIC NAUSEA. EATING SALTINE CRACKERS AT THIS TIME TO HELP CALM HER STOMACH. DENIES ANY OTHER ACUTE NEEDS. CONTINUE TO MONITOR CLOSELY.
--- NOTE | 2016-11-02 07:30 | NUR ---
PT IS RESTING IN BED WITH EYES OPEN. ALERT AND ORIENTED X 3. IV IS INFUSING TO LEFT AC WITHOUT DIFFICULTY. NO REDNESS OR EDEMA NOTED AT THE INSERTION SITE. CATHETER IN PLACE AND DRAINING TO A GRAVITY BAG. FAMILY MEMBER IS AT BEDSIDE. SR'S ARE UP X 2 IN BED. CALL LIGHT AND BEDSIDE TABLE ARE WITHIN EASY REACH.
[2016-11-02 07:53] LABS: BASOPHILS 0.8 % (0.0-2.0); EOSINOPHILS 2.8 % (0-7); HEMATOCRIT 29.2 % (36.0-48.0); HEMOGLOBIN 9.1 g/dL (12-16); IMMATURE GRANULOCYTES 0.3 % (0-5); LYMPHOCYTES 16.8 % (15-50); MCH 27.1 pg (26.0-34.0); MCHC 31.2 g/dL (31.0-37.0); MCV 86.9 fL (80.0-100.0); MONOCYTES 18.3 % (2-11); RBC 3.36 10x6/uL (4.00-5.40); RDW 14.4 % (11.5-14.5)
[2016-11-02 07:54] LABS: PLATELET COUNT 246 10x3/uL (130-400); WBC 3.9 10x3/uL (4.8-10.8)
[2016-11-02 08:28] LABS: ANION GAP 12.9 mmol/L (8-16); BILIRUBIN - DIRECT 0.09 mg/dL (0.00-0.30); BILIRUBIN - INDIRECT 0.18 mg/dL (0.00-1.00); BILIRUBIN - TOTAL 0.27 mg/dL (0.2-1.3); CALCIUM 8.5 mg/dL (8.5-10.1); CARBON DIOXIDE 23.4 mmol/L (21.0-32.0); CREATININE - SERUM 1.8 mg/dL (0.6-1.3); POTASSIUM - SERUM 4.3 mmol/L (3.5-5.1); PROTEIN - SERUM 5.2 g/dL (6.4-8.2); TROPONIN-I 0.021 ng/mL (0.000-0.060)
[2016-11-02 08:30] LABS: % SATURATION 14 % (15-55); IRON 22 ug/dl (35-150); TOTAL IRON BIND CAPACITY 152 ug/dl (260-445); UNSAT IRON BIND CAPACITY 130 ug/dl (150-375)
--- NOTE | 2016-11-02 09:59 | NUR ---
YULI NEEDS AT THIS TIME. IV PATENT. CALL LIGHT IN REACH. WILL MONITOR.
--- NOTE | 2016-11-02 10:05 | NUR ---
PT IS RESTING IN BED WITH EYES OPEN. NO NEEDS VOICED.
--- NOTE | 2016-11-02 13:16 | NUR ---
PT RESTING IN BED WITH EYES OPEN. DR MIN HERE TO SEE PT. GI HAS BEEN HERE TO SEE PT. ALSO. SCHEDULED FOR EGD TOMMORROW, AND WILL BE SCHEDULED FOR LANA STENT PLACEMENT BY DR MIN TUESDAY.
--- NOTE | 2016-11-02 15:10 | NUR ---
12FR MARADIAGA CATH INSERTED USING STERILE TECHNIQUE. 5CC BALLOON INJECTED. MARADIAGA DRAINING CLEAR YELLOW URINE TO A GRAVITY BAG.
--- NOTE | 2016-11-02 16:37 | NUR ---
PT RESTING IN BED WITH EYES CLOSED. NO ACUTE DISTRESS NOTED.
[2016-11-03 01:25] VITALS: BP 124/72
--- NOTE | 2016-11-03 01:57 | NUR ---
UP WITH ASSIST TO BSC FOR BM.
[2016-11-03 05:45] VITALS: BP 120/69
[2016-11-03 05:58] LABS: BASOPHILS 1.2 % (0.0-2.0); EOSINOPHILS 4.5 % (0-7); HEMATOCRIT 29.3 % (36.0-48.0); HEMOGLOBIN 9.1 g/dL (12-16); IMMATURE GRANULOCYTES 0.3 % (0-5); LYMPHOCYTES 21.9 % (15-50); MCH 27.2 pg (26.0-34.0); MCHC 31.1 g/dL (31.0-37.0); MCV 87.7 fL (80.0-100.0); MEAN PLATELET VOLUME 9.3 fL (7.4-10.4); MONOCYTES 15.3 % (2-11); NEUTROPHILS 56.8 % (40-80); PLATELET COUNT 224 10x3/uL (130-400); RBC 3.34 10x6/uL (4.00-5.40); RDW 14.4 % (11.5-14.5); WBC 3.3 10x3/uL (4.8-10.8)
[2016-11-03 06:48] LABS: ANION GAP 12.2 mmol/L (8-16); CALCIUM 8.2 mg/dL (8.5-10.1); CARBON DIOXIDE 25.2 mmol/L (21.0-32.0); CREATININE - SERUM 1.7 mg/dL (0.6-1.3); PHOSPHOROUS 4.6 mg/dL (2.5-4.9); POTASSIUM - SERUM 4.4 mmol/L (3.5-5.1)
--- NOTE | 2016-11-03 07:29 | NUR ---
PT SITTING UP IN BED WITH DAUGHTER AT BEDSIDE. DENIES NEEDS WILL CONT TO MONITOR.
--- NOTE | 2016-11-03 07:58 | NUR ---
WAITING ON PHARM TO BRING UP IV IRON. THEN WILL GIVE WHEN AVAILABL.E
[2016-11-03 08:00] VITALS: BP 137/74
[2016-11-03 12:00] VITALS: BP 142/70
--- NOTE | 2016-11-03 15:12 | NUR ---
PT IS REFUSING SCDS AT THIS TIME DUE TO FREQUENT BMS. SCDS ARE IN ROOM FOR NIGHT TIME USE IF PT WOULD LIKE. COLLECTED 24 HOUR URINE THAT HAS BEEN BEING COLLECTED SINCE 1500 YESTERDAY. THERE WAS NO ORDER PLACED FOR 24 HOUR URINE TO COLLECT. PLACED ONE. COLLECTED. PT SIGNED CONSENTS FOR TOMORROWS PROCEDURE WITH DR MIN. PUTTING ON PT CHART.
[2016-11-03 15:28] LABS: PROTEIN - URINE 137.5 mg/dL (0.0-11.9)
--- NOTE | 2016-11-03 15:47 | NUR ---
WENT TO PREOP PT FOR EGD. PT PIV IN LEFT AC INFILTRATED DC WITH CATHETER TIP INTACT. TRANSPORTER FROM GI LAB SAID THEY WOULD RESTART OVER IN GI LAB. PT TO GI LAB
--- NOTE | 2016-11-03 16:38 | NUR ---
Patient Name: DIANA GRIMALDO Admission Status: ER Accout number: [id number] Admission Date: 11-01-2016 : 1940 Admission Diagnosis:SHORTNESS OF BREATH Attending: BENJI Current LOS: 2 Anticipated DC Date: TO BE DETERMINED Planned Disposition: TO BE DETERMINED Primary Insurance: MEDICARE A & B Discharge Planning Comments: CM ATTEMPTED TO MEET WITH PT FOR INITIAL ASSESSMENT OF DISCHARGE NEEDS. PT WAS NOT IN ROOM AT APPROXIMATELY 1625 HOURS. CM TO ATTEMPT ASSESSMENT OF PT AT A LATER TIME. Nurse Practitioner Home Assessments: Yaw Luna
--- NOTE | 2016-11-03 17:05 | NUR ---
PT BACK FROM GI LAB. ALERT AND ORIENTED VS WNL. STARTED IV FLUIDS BACK RUNNING NO PROBLEMS TO R AC PIV THAT GI LAB SITED 20G. PT DENIES NEEDS OTHER THAN FOOD. ORDERED DINNER TRAY. WILL CONT TO MONITOR.
--- NOTE | 2016-11-03 17:55 | NUR ---
PT SITTING UP IN BED DENIES NEEDS WILL CONT TO MONITOR.
--- NOTE | 2016-11-03 19:40 | NUR ---
PT RESTING IN BED WATCHING TV. PT IV TO RT AC IS RUNNING NS @50. MARADIAGA BAG HAS SMALL AMOUNT CONCENTRATED URINE. PT UNDERSTANDS PROCEDURE IN THE MORNING AND KNOWS THAT SHE IS NPO AFTER MIDNIGHT. PT DENIES NEEDS. WCTM. BED LOW. CL IN REACH.
[2016-11-03 20:00] VITALS: BP 101/58
--- NOTE | 2016-11-03 21:17 | NUR ---
PT REFUSED DULCOLAX AT HS. PT STATED SHE SPOKE WITH HER DR ABOUT NOT TAKING ANYMORE. PT DENIES NEEDS. WCTM. BED LOW. CL IN REACH.
--- NOTE | 2016-11-03 23:36 | NUR ---
PT RESTING, EYES CLOSED. BED LOW. CL IN REACH.
[2016-11-04] VITALS: BP 107/60
--- NOTE | 2016-11-04 00:37 | NUR ---
ASSISTANT PROFESSOR OF ARCHAEOLOGY AT BEDSIDE TO OBTAIN VITALS, CALL LIGHT IN REACH. WILL CONTINUE WITH PLAN OF CARE.
[2016-11-04 04:00] VITALS: BP 134/62
--- NOTE | 2016-11-04 04:30 | NUR ---
PT HAS BEEN RESTING WITH EYES CLOSED ALL NIGHT. RR HAVE BEEN EVEN AND UNLABORED. WCTM. BED LOW. CL IN REACH.
[2016-11-04 05:57] LABS: BASOPHILS 1.6 % (0.0-2.0); EOSINOPHILS 4.7 % (0-7); HEMATOCRIT 29.7 % (36.0-48.0); HEMOGLOBIN 9.3 g/dL (12-16); IMMATURE GRANULOCYTES 0.6 % (0-5); LYMPHOCYTES 18.8 % (15-50); MCH 27.5 pg (26.0-34.0); MCHC 31.3 g/dL (31.0-37.0); MCV 87.9 fL (80.0-100.0); MONOCYTES 15.7 % (2-11); NEUTROPHILS 58.6 % (40-80); PLATELET COUNT 233 10x3/uL (130-400); RBC 3.38 10x6/uL (4.00-5.40); RDW 14.3 % (11.5-14.5); WBC 3.2 10x3/uL (4.8-10.8)
[2016-11-04 06:12] LABS: ANION GAP 10.7 mmol/L (8-16); CALCIUM 8.5 mg/dL (8.5-10.1); CARBON DIOXIDE 23.7 mmol/L (21.0-32.0); CREATININE - SERUM 1.6 mg/dL (0.6-1.3); POTASSIUM - SERUM 4.4 mmol/L (3.5-5.1)
--- NOTE | 2016-11-04 07:23 | NUR ---
LILA FROM OR STATED TO GET PRE-OP MEDICATIONS READY AND THEY WILL GIVE THEM IN PRE-OP. DID ORDERED AND GAVE LILA PTS PRE-OP MEDICATIONS. PT TO OR VIA BED.
--- NOTE | 2016-11-04 08:14 | NUR ---
0700- AM ROUNDING. RECEIVED REPORT FROM VINCENT ZARATE CYCLE LIAISON NURSE. PT IS LAYING IN BED ON BACK WITH EYES OPEN RESTING CURRENTLY AWAITING SURGERY. DAUGHTER IS AT BEDSIDE. NPO CURRENTLY FOR PROCEDURE. CONSENTS ARE SIGNED AND IN CHART PER CYCLE LIAISON NURSE. ON ROOM AIR. NO MONITOR. IV SEEN TO RIGHT AC WITH NS RUNNING AT 50CC/HR. MARADIAGA CATHETER SEEN WITH JORGE LUIS COLORED URINE. NO NEED AT CURRENT TIME. WILL AWAIT OR TO CALL TO PRE-OP PT. WILL CONTINUE TO MONITOR.
[2016-11-04 12:03] LABS: BASOPHILS 0.5 % (0.0-2.0); EOSINOPHILS 1.8 % (0-7); HEMATOCRIT 31.9 % (36.0-48.0); HEMOGLOBIN 9.8 g/dL (12-16); IMMATURE GRANULOCYTES 0.4 % (0-5); LYMPHOCYTES 10.9 % (15-50); MCH 27.1 pg (26.0-34.0); MCHC 30.7 g/dL (31.0-37.0); MCV 88.4 fL (80.0-100.0); MONOCYTES 8.3 % (2-11); NEUTROPHILS 78.1 % (40-80); RBC 3.61 10x6/uL (4.00-5.40); RDW 14.4 % (11.5-14.5)
[2016-11-04 12:04] LABS: PLATELET COUNT 303 10x3/uL (130-400)
[2016-11-04 12:06] VITALS: BP 162/75
--- NOTE | 2016-11-04 12:16 | NUR ---
PT BACK FROM PROCEDURE (OR) VIA BED ACCOMPANIED BY VINCENT LEIVA.
--- NOTE | 2016-11-04 13:31 | NUR ---
Nutrition follow-up: Pt just back from procedure Diet changed to regular per Dr. Newman PO intake of renal diet ~75-100% of meals post-procedure Wt: 135# Will provide food choices and honor food preferences. RDN following.
--- NOTE | 2016-11-04 15:20 | NUR ---
Patient Name: DIANA GRIMALDO Admission Status: ER Accout number: [id number] Admission Date: 11-01-2016 : 1940 Admission Diagnosis:SHORTNESS OF BREATH Attending: BENJI Current LOS: 3 Anticipated DC Date: Planned Disposition: Home Primary Insurance: MEDICARE A & B Discharge Planning Comments: * Is the patient Alert and Oriented? Yes 0 * How many steps to enter\exit or inside your home? NONE 0 * PCP DR. PLATT 0 * Pharmacy [facility] [address] 0 * Preadmission Environment Home Alone 0 * ADLs Independent 0 * Equipment Catheter Supplies 0 * Other Equipment [facility], [place] [facility] - MEDICAL EQUIPMENT PROVIDER PREFERENCE 0 * List name and contact numbers for known caregivers / representatives who currently or will assist patient after discharge: ENEDINA CUELLO, DTR, 0 * Community resources currently utilized None 0 * Please name any agencies selected above. NONE 0 * Additional services required to return to the preadmission environment? No 0 * Can the patient safely return to the preadmission environment? Yes 0 * Has this patient been hospitalized within the prior 30 days at any hospital? Yes 0 CM MET WITH PT IN ROOM TO DISCUSS DISCHARGE PLANNING AND NEEDS. PT'S SISTER REPORTS PT WAS POST SURGERY TODAY AND THE DOCTOR ASKED THAT PT SLEEP ALL DAY. PT SAID HELLO TO PT AND APPEARED TO BE VERY DROUSY. PLAN IS TO RETURN HOME AND PT HAS UNKNOWN DISCHARGE NEEDS AT THIS TIME. CM TO FOLLOW UP WITH PT WHEN CLOSER TO DISCHARGE TO RE EVALUATE FOR DISCHARGE NEEDS. Hand Suture Winder: Yaw Luna
[2016-11-04 15:30] VITALS: BP 143/77
--- NOTE | 2016-11-04 16:42 | NUR ---
PT LAYING IN BED ON BACK WITH EYES OPEN VISITING WITH DAUGHTER AND SISTER. DENIES ANY DISCOMFORT AT CURRENT TIME. WILL CONTINUE TO MONITOR.
--- NOTE | 2016-11-04 19:20 | NUR ---
ASSESSMENT DONE. PT SLEEPING, EASILY AWAKEN. DAUGHTER IN ROOM. PT A/O. MARADIAGA CATH PATENT TO BSD WITH APPROX 200ML OF BLOODY URINE. PT C/O ONLY SLIGHT DISCOMFORT IN LOWER ABDOMEN WITH MOVEMENT. REQUEST FRESH ICE WATER. DENIES OTHER NEEDS OR WANTS AT THIS TIME. CALL LIGHT WITH IN REACH. WILL CONT. TO MONITOR.
[2016-11-04 20:00] VITALS: BP 108/55
--- NOTE | 2016-11-04 20:10 | NUR ---
PT INCONT OF STOOL. LINENS CHANGED. PT A/O SITTING ON TOILET. NO DISTRESS NOTED. DENIES NEEDS. WILL CONT. TO MONITOR.
--- NOTE | 2016-11-04 20:53 | OP ---
PATIENT NAME: DIANA GRIMALDO MEDICAL RECORD: [id number] :40 LOCATION:D.M2 D.2137 ADMISSION DATE:11/01/16 SURGEON: FRANSISCO MIN MD DATE OF OPERATION: 11/04/2016 SURGEON: Fransisco Min MD ANESTHESIA: General anesthesia by Dr. De La Vega. 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 FINDINGS: Right ureteropelvic junction obstruction, also left ureteropelvic junction obstruction and left mid ureteral stricture at the L4-L5 interspace and left distal ureteral stricture at the inferior margin of the iliac bone where the ureter crosses the iliac artery. PROCEDURE: Cystoscopy, right ureteral stent insertion 6-Peruvian x 24 cm without string attached, left ureteroscopy, left balloon dilation of multiple ureteral strictures, left Acucise endopyelotomy and insertion of left Acucise stent 7 mm proximal diameter. SPECIMEN: None. ESTIMATED BLOOD LOSS: None. CLINICAL HISTORY: This is a 76-year-old female with a documented bilateral obstructive UPJ obstruction. This was initially diagnosed on ultrasound imaging showing bilateral hydronephrosis. Lasix renal scan confirmed high-grade obstruction on both sides with the left side being more greatly affected. Recently, she had an ascending left pyelonephritis and when she had a left ureteral stent inserted, her serum creatinine dropped down from an elevated level to normal levels of 1.2. When I saw her in followup to check for clearance of her UTI, she was complaining of epigastric pain as well as shortness of breath. Her serum creatinine had elevated again to 1.8. Yesterday, she had upper endoscopy, which revealed a gastric ulcer. She is being treated for that by GI. Today, she comes to have a left Acucise endopyelotomy performed. About 1 week ago, I did try to perform this procedure, but I was by the Acucise catheter not being able to get up to where I needed it to go as it was held by some distal ureteral scarring. Today, I am going to look in with the ureteroscope and attend all the distal ureteral scarring in one go. Also, the latest CT scan raised the question of an upper ureteral filling defect, so I wanted to visualize the entire ureter with the ureteroscope. She was given Ancef 1 gram IV electronics system mechanic to the OR. DESCRIPTION OF PROCEDURE: The patient was given induction of general anesthesia. She was placed in the dorsal lithotomy position, prepped and draped. A 21-Peruvian cystoscope with 30-degree lens was used for visualization. The bladder shows no signs of bladder tumors. Single ureteral orifices were seen on each side. A Glidewire was placed into the right ureteral orifice up into the renal pelvis. Over the Glidewire, we inserted a 6-Peruvian x 24 cm ureteral stent with the string removed from the distal end. Once the stent was in position, the Glidewire was entirely removed and fluoroscopy confirmed correct position of the stent. We then placed a Glidewire into the left ureteral orifice. In the region of the UP junction, there was again significant OPERATIVE REPORT [id number] DIANA GRIMALDO tortuosity of the proximal ureter immediately distal to the UP junction. With a bit of manipulation, the Glidewire was able to get into the renal pelvis. We then used a 21-Peruvian balloon dilator and dilated the left ureteral orifice with 20 atmospheres of pressure for a few seconds. The balloon dilator was then entirely removed, leaving the Glidewire behind. We then used a rigid ureteroscope and advanced it beside the guidewire. In the region of the inferior margin of the left iliac bone, we encountered a tight ureteral stricture, which the semi-rigid ureteroscope could not pass. I inserted a Sensor wire through the rigid ureteroscope and up to the level of the UP junction. A Sensor wire would not go pass through the tortuosity of the UP junction. Over the Sensor wire, we attempted to use our 21-Peruvian balloon dilator, but this would not go through the stricture zone. We obtained cardiac angioplasty dilation balloons and using a 3-mm angioplasty balloon, we were able to get through the stricture zone. Then, we followed this up with a 4 mm balloon and a 6 mm angioplasty balloon. Finally, using a flexible cystoscope, we could get through the stricture zone. We could see the pulsation of the iliac artery against the ureteral wall. Then, in the mid ureter, we again encountered another ureteral stricture. In all this time with doing flexible ureteroscopy, we did not see any tumors at all. The ureter is clear. Again, we followed with the sequence of ureteral dilations starting from 3 mm up to 6 mm. We were able to get past the mid ureteral stricture with the flexible cystoscope and finally, we got into the proximal ureter where we ran into the tortuosity of the UP junction. Up to now, we had not seen any tumors of any kind. I attempted to pass the working sheath, it is 21-Peruvian, and this went up to the level of the UP junction and was obstructed there. Again, we had to use our coronary angioplasty balloon starting from 3 mm working up to 4 and 6 mm and I was able to dilate the tortuosity of the UP junction and go all the way into the renal pelvis. Flexible cystoscopy was into the renal pelvis, but it was rather difficult as there was a lot of blood in the renal pelvis at this point. However, since we had finally managed to get through, I decided to proceed with the Acucise endopyelotomy. Her previous CT scan with contrast also did not show any filling defects in the ureter. While we had the flexible ureteroscope in the renal pelvis, we placed the Sensor wire through the lumen of the flexible ureteroscope into the renal pelvis. We then backed the scope out, leaving the Sensor wire in place. At this point, we had the Glidewire and the Sensor wire in the renal pelvis. Over the Sensor wire, we inserted the dilator sheath and again this was still caught up in the level of the UPJ stricture. Over the Sensor wire, we inserted the Acucise endopyelotomy balloon. We made sure that the balloon was inserted with the wire facing laterally. We kept this orientation throughout. With some difficulty, the endopyelotomy balloon managed to go into the renal pelvis at its most proximal portion and the distal portion was just outside of the ureteral access sheath. A 2.2 mL of contrast were placed into the Acucise balloon and we could see a pinpoint focal narrowing where the true UP junction obstruction lay. This was dilated by injecting the full 2.2 mL of saline and at the same time, we and applied a 75 lala of monopolar cutting current for 5 seconds exactly. At the end of this, we turned the current off and deflated the balloon, leaving the Acucise ureteral catheter in its location. We performed a retrograde pyelogram by injecting contrast through the Acucise catheter. This did show extravasation laterally, which confirmed that we had made a satpext-avj-gbvojek cut of the UP junction stricture. It should also be noted that prior to applying any current, we also removed the Glidewire to prevent conduction of any current by the Glidewire. At this point, the Sensor wire was the only wire remaining. We then removed the Acucise catheter, leaving the Sensor wire in place. The Acucise ureteral stent was placed with the big ends going proximally and once the large end was seen to OPERATIVE REPORT [id number] REDIANANia juarez within the renal pelvis, we verified the position of the stent distally under direct vision with the cystoscope. Once the stent was in correct position, the Sensor wire was entirely removed. The working sheath had also been removed over the wire. This, had been removed prior to insertion of the stent. Finally, the bladder was emptied through the cystoscope sheath. We inserted a 14-Peruvian Dowell catheter as the patient has chronic urinary retention and the patient was awakened and brought to the recovery room. TRANSINT:[id number] Voice Confirmation ID: [id number] DOCUMENT ID: [id number] FRANSISCO MIN MD at 2053 CC: [id number] DICTATION DATE: 11/04/16 1135 TECHNICIAN AUTOMATIC: 11/04/16 1525 ADM IN [facility] [address] [facility]
--- NOTE | 2016-11-04 22:39 | NUR ---
WHILE ATTEMPTING TO AMB TO THE RESTROOM PT'S IV TUBE WAS CAUGHT ON BEDRAIL PULLING IV OUT. 2X2 PLACED AT SITE. WILL RE-SITE IV.
--- NOTE | 2016-11-04 23:40 | NUR ---
IV RESITED TO PT'S RT WRIST WITH 22G, X1 ATTEMPT. PT TOLERATED WELL.
[2016-11-05] VITALS: BP 123/75
--- NOTE | 2016-11-05 03:04 | NUR ---
PT SLEEPING. AWAKEN BY NURSE OPENING DOOR. DENIES NEEDS. CALL LIGHT WITH IN REACH. WILL CONT. TO MONITOR.
[2016-11-05 04:00] VITALS: BP 132/75
[2016-11-05 05:04] LABS: BASOPHILS 0.7 % (0.0-2.0); EOSINOPHILS 2.8 % (0-7); HEMOGLOBIN 9.4 g/dL (12-16); IMMATURE GRANULOCYTES 0.3 % (0-5); LYMPHOCYTES 13.6 % (15-50); MCH 27.2 pg (26.0-34.0); MCHC 30.3 g/dL (31.0-37.0); MCV 89.9 fL (80.0-100.0); MEAN PLATELET VOLUME 10.1 fL (7.4-10.4); MONOCYTES 12.6 % (2-11); PLATELET COUNT 286 10x3/uL (130-400); RBC 3.45 10x6/uL (4.00-5.40); RDW 14.5 % (11.5-14.5)
[2016-11-05 05:13] LABS: ANION GAP 14.5 mmol/L (8-16); CALCIUM 8.1 mg/dL (8.5-10.1); CARBON DIOXIDE 21.5 mmol/L (21.0-32.0); CREATININE - SERUM 1.5 mg/dL (0.6-1.3)
--- NOTE | 2016-11-05 05:17 | NUR ---
TROLLEY CLEANER AT BEDSIDE TO OBTAIN VITALS, CALL LIGHT IN REACH. WILL CONTINUE WITH PLAN OF CARE.
--- NOTE | 2016-11-05 06:31 | NUR ---
ASSISTED PT TO RESTROOM. PT A/O. STATES SHE IS FEELING BETTER. DENIES NEEDS. NO DISTRESS NOTED.
--- NOTE | 2016-11-05 07:44 | NUR ---
0700- AM ROUNDING. RECEIVED REPORT FROM ASSOCIATE PROFESSOR OF PHILOSOPHY NURSE JORGE LUIS. PT IS CURRENTLY LAYING IN BED ON RIGHT SIDE WITH EYES OPEN RESTING. NO MONITOR. ON ROOM AIR. IV SEEN TO RIGHT WRIST WITH NS RUNNING AT 50CC. MARADIAGA CATHETER WITH BLOOD-TINGED URINE. SCDS AT BEDSIDE. PT IS ALERT AND ORIENTED. NO NEED AT CURRENT TIME. WILL CONTINUE TO MONITOR.
[2016-11-05 12:00] VITALS: BP 140/75
[2016-11-05 16:00] VITALS: BP 107/46
[2016-11-05 19:00] VITALS: BP 143/77
--- NOTE | 2016-11-05 19:30 | NUR ---
ASSESSMENT DONE. PT C/O NAUSEA WHEN EATING OR DRINKING WATER. IS TOLERATING LEMON [place]ASHOE DRINK OK. PT DECLINED OFFER FOR ZOFRAN. STATES SHE ISN'T SICK UNLESS SHE TRIES TO EAT. PT A/O. DENIES PAIN. MARADIAGA PATENT WITH BSD, WITH BLOOD TINGED URINE. STOOL COLLECTED FOR C-DIFF. PT DENIES NEEDS AT THIS TIME. CALL LIGHT WITH IN REACH. WILL CONT. TO MONITOR.
--- NOTE | 2016-11-05 23:24 | NUR ---
PT SLEEPING. APPREARS COMFORTABLE. RESP EVEN AND UNLABORED. CALL LIGHT WITH IN REACH. WILL CONT. TO MONITOR.
[2016-11-06] VITALS: BP 120/51
--- NOTE | 2016-11-06 01:23 | NUR ---
ASSISTED PT TO BSD. PT C/O LOOSE STOOL. C-DIFF NEG. PT DENIES ABD PAIN, OR DISCOMFORT OF ANY KIND. WILL CONT. TO MONITOR.
--- NOTE | 2016-11-06 04:18 | NUR ---
PT SLEEPING. AWAKEN BY NURSE ENTERING ROOM. PT STATES SHE IS FEELING "OK" AT THE MOMENT. DENIES NEEDS OR WANTS. CALL LIGHT WITH IN REACH. WILL CONT. TO MONITOR.
[2016-11-06 05:07] VITALS: BP 124/59
[2016-11-06 05:29] LABS: BASOPHILS 0.8 % (0.0-2.0); EOSINOPHILS 5.4 % (0-7); HEMATOCRIT 28.5 % (36.0-48.0); HEMOGLOBIN 8.7 g/dL (12-16); IMMATURE GRANULOCYTES 0.4 % (0-5); LYMPHOCYTES 15.1 % (15-50); MCH 26.9 pg (26.0-34.0); MCHC 30.5 g/dL (31.0-37.0); MCV 88.2 fL (80.0-100.0); MEAN PLATELET VOLUME 10.3 fL (7.4-10.4); MONOCYTES 12.5 % (2-11); NEUTROPHILS 65.8 % (40-80); RBC 3.23 10x6/uL (4.00-5.40); RDW 14.4 % (11.5-14.5)
[2016-11-06 05:35] LABS: PLATELET COUNT 221 10x3/uL (130-400)
[2016-11-06 05:50] LABS: ANION GAP 14.4 mmol/L (8-16); CALCIUM 8.1 mg/dL (8.5-10.1); CARBON DIOXIDE 19.1 mmol/L (21.0-32.0); CREATININE - SERUM 1.8 mg/dL (0.6-1.3); MAGNESIUM - SERUM 1.6 mg/dL (1.8-2.4); PHOSPHOROUS 4.1 mg/dL (2.5-4.9); POTASSIUM - SERUM 3.5 mmol/L (3.5-5.1)
--- NOTE | 2016-11-06 07:00 | NUR ---
RECEIVED REPORT. ASSUMED CARE OF PATIENT. CALL LIGHT WITHIN REACH. PATIENT LYING ON LEFT LATERAL SIDE. COMPLAIN OF BOUTS OF NAUSEA THAT COME AND GO AND THAT THIS IS A CHRONIC PROBLEM THAT SHE HAS HAD FOR THE LAST FEW MONTHS. MARADIAGA CATHETER DRAINING BLOOD TINGED URINE. DENIES NEEDS AT THIS TIME. NO DISTRESS.
[2016-11-06 08:00] VITALS: BP 127/67
[2016-11-06 12:00] VITALS: BP 158/68
--- NOTE | 2016-11-06 13:45 | NUR ---
MIKEL CHISHOLM, RENAL GRINDING OPERATOR, TO INFORM HER THAT WAS HERE AND IS WORRIED ABOUT PATIENTS NUTRITION AND WANTS TO KNOW WHAT RENAL THINKS ABOUT PLACING PATIENT ON TPN. PATIENT DOES NOT HAVE A CENTRAL LINE. PHAN STATES SHE WILL DISCUSS THIS AND ORDER THIS FOR PATIENT IN AM.
--- NOTE | 2016-11-06 14:03 | NUR ---
ASSISTED PATIENT OOB FOR SHOWER. LINEN CHANGE PROVIDED. PATIENT WITH FAMILY AT BEDSIDE. NO DISTRESS.
[2016-11-06 16:00] VITALS: BP 129/68
--- NOTE | 2016-11-06 18:40 | NUR ---
RESTING IN BED WITH EYES OPEN, FAMILY AT BEDSIDE. CALL LIGHT WITHIN REACH. NO DISTRESS. DENIES NEEDS.
--- NOTE | 2016-11-06 20:24 | NUR ---
RESTING IN BED WITH DAUGHTER AT BEDSIDE. ALERT/ORIENTED. MARADIAGA PATENT TO BEDSIDE DRAIN BAG. RIGHT WRIST PIV WITH D5.45NS @ 75ML/HR. PT HAS A VERY TIGHT/DISTENDED ABDOMEN WITH C/O LIQUID STOOL WHEN SHE GOES TO BATHROOM. REVIWED XRAYS/CT SCANS AND NO IMPLACTIONS ARE NOTED. ACTIVE BS T RUQ AND LUQ WITH VERY HYPO BS TO LLQ AND RLQ. CPOC.
[2016-11-06 20:38] VITALS: BP 151/70
--- NOTE | 2016-11-06 21:27 | NUR ---
HS IV ABT INFUSING. IV PROTONIX ADMINISTERED. UP TO USE BEDSIDE COMMODE. SOME FLATULENCE.
--- NOTE | 2016-11-06 22:19 | NUR ---
C/O NAUSEA, IV ZOFRAN 4MG GIVEN. WILL MONITOR. PT WATCHING TV.
[2016-11-07 00:11] VITALS: BP 143/63
--- NOTE | 2016-11-07 03:49 | NUR ---
IV ABT UP AND INFUSING. BROUGHT PT WARM BLANKET. VOICING NO OTHER NEEDS. VSS. CPOC.
[2016-11-07 04:40] VITALS: BP 123/69
[2016-11-07 05:59] LABS: BASOPHILS 0.8 % (0.0-2.0); EOSINOPHILS 7.2 % (0-7); HEMATOCRIT 26.7 % (36.0-48.0); HEMOGLOBIN 8.4 g/dL (12-16); IMMATURE GRANULOCYTES 0.4 % (0-5); LYMPHOCYTES 14.3 % (15-50); MCH 27.5 pg (26.0-34.0); MCHC 31.5 g/dL (31.0-37.0); MCV 87.3 fL (80.0-100.0); MONOCYTES 13.1 % (2-11); NEUTROPHILS 64.2 % (40-80); PLATELET COUNT 223 10x3/uL (130-400); RBC 3.06 10x6/uL (4.00-5.40); RDW 14.5 % (11.5-14.5); WBC 4.7 10x3/uL (4.8-10.8)
[2016-11-07 06:20] LABS: % SATURATION 17 % (15-55); IRON 25 ug/dl (35-150); TOTAL IRON BIND CAPACITY 146 ug/dl (260-445); UNSAT IRON BIND CAPACITY 121 ug/dl (150-375)
[2016-11-07 06:41] LABS: ALBUMIN 1.7 g/dL (3.4-5.0); ANION GAP 13.7 mmol/L (8-16); BILIRUBIN - DIRECT 0.04 mg/dL (0.00-0.30); BILIRUBIN - INDIRECT 0.16 mg/dL (0.00-1.00); BILIRUBIN - TOTAL 0.2 mg/dL (0.2-1.3); CALCIUM 7.8 mg/dL (8.5-10.1); CARBON DIOXIDE 20.5 mmol/L (21.0-32.0); CREATININE - SERUM 1.6 mg/dL (0.6-1.3); POTASSIUM - SERUM 3.2 mmol/L (3.5-5.1); PROTEIN - SERUM 4.6 g/dL (6.4-8.2)
--- NOTE | 2016-11-07 07:10 | NUR ---
RECEIVED REPORT. ASSUMED CARE OF PATIENT. CALL LIGHT WITHIN REACH. PATIENT WITH VISITOR AT BEDSIDE. IV FLUIDS INFUSING ORDERED. DENIES NEEDS. NO DISTRESS.
[2016-11-07 08:00] VITALS: BP 128/80
--- NOTE | 2016-11-07 08:46 | NUR ---
MEDICATED FOR NAUSEA AT THIS TIME. NO DISTRESS.
[2016-11-07 12:00] VITALS: BP 134/69
[2016-11-07 16:00] VITALS: BP 138/68
--- NOTE | 2016-11-07 18:06 | NUR ---
22 GUAGE IV PLACED TO LEFT WRIST X 1 STICK. GOOD BLOOD RETURN, EASY FLUSH. TAPED, DATED AND SECURED. PATIENT TOLERATED IV PLACEMENT WELL. IV PLACED FOR LIPID INFUSION. PATIENT DOES NOT YET HAVE A CENTRAL LINE PLACED AND PATIENT HAS ZOFRAN DRIP AND D5 1/2 TO RIGHT FOREARM. LIPIDS INFUSING ORDERED OVER 8 HOURS AT THIS TIME. NO DISTRESS.
--- NOTE | 2016-11-07 19:30 | NUR ---
ASSESSMENT COMPLETE, LYING ON RT SIDE IN BED, EYES OPEN RESP EVEN AND UNLAB ON ROOM AIR. VOICES NO C/O PAIN OR DISCOMFORT AT THIS TIME. HOB UP SR UP X2, C/L IN REACH RT WRIS IV SITE CDI WITH NO R/S NOTEDS TO SITE. D5 1/2 NS INFUSING W/O DIFF VIA PUMP AT 75 CC/HR, ALSO ZOFRAN AT 4/7 CC/HR VIA PUMP. MAURA WELL. LEFT WRIST IV INTACT AND PATENT WITH LIPIDS INFUSING W/O DIFF VIA PUMP AT 30CC/HR. MAURA WELL. MARADIAGA CATH WITH LIGHTLY BLOOD TINGED URINE NOTED IN BAG, BILAT SCDS IN PLACE. CONTINUE TO MONITOR.
--- NOTE | 2016-11-07 19:30 | NUR ---
ASSESSMENT COMPLETE VOICES NO C/O PAIN OR DISCOMFORT AT THIS TIME. HOB UP SR UP X2, C/L IN REACH. TV ON. ALERT AND ORIENTED X3, RESP UNLAB, ON ROOM AIR. CONTINUE TO MONITOR.
[2016-11-07 20:00] VITALS: BP 119/57
--- NOTE | 2016-11-07 23:19 | NUR ---
PERMITS OBTAINED FOR CENTRAL LINE PLACEMENT TO BE DONE BY DR RAVI. SUPPLIES AT BEDSIDE.
[2016-11-08 01:55] VITALS: BP 122/53
[2016-11-08 04:56] LABS: BASOPHILS 1.1 % (0.0-2.0); EOSINOPHILS 7.2 % (0-7); HEMOGLOBIN 8.7 g/dL (12-16); IMMATURE GRANULOCYTES 0.8 % (0-5); LYMPHOCYTES 13.3 % (15-50); MCH 27.3 pg (26.0-34.0); MCHC 31.1 g/dL (31.0-37.0); MCV 87.8 fL (80.0-100.0); MEAN PLATELET VOLUME 10.2 fL (7.4-10.4); MONOCYTES 13.5 % (2-11); NEUTROPHILS 64.1 % (40-80); PLATELET COUNT 229 10x3/uL (130-400); RBC 3.19 10x6/uL (4.00-5.40); RDW 14.4 % (11.5-14.5); WBC 4.8 10x3/uL (4.8-10.8)
[2016-11-08 05:28] LABS: ANION GAP 15.1 mmol/L (8-16); CALCIUM 8.1 mg/dL (8.5-10.1); CREATININE - SERUM 1.4 mg/dL (0.6-1.3); MAGNESIUM - SERUM 1.3 mg/dL (1.8-2.4); PHOSPHOROUS 3.3 mg/dL (2.5-4.9); POTASSIUM - SERUM 3.1 mmol/L (3.5-5.1)
[2016-11-08 06:38] VITALS: BP 114/59
--- NOTE | 2016-11-08 08:05 | NUR ---
PT SITTING UP IN BED. ASSISTED DR RAVI WITH R NECK CVL PLACEMENT. DRESSING CDI SIGNED AND DATED SWAB CAPS IN PLACE. PT DENIES NEEDS WILL CONT TO MONITOR.
[2016-11-08 08:32] VITALS: BP 156/76
--- NOTE | 2016-11-08 10:09 | NUR ---
STUDENT NURSE DC PIV IN R FA AND LEFT FA WITH CATHS INTACT.
[2016-11-08 12:35] VITALS: BP 146/76
[2016-11-08 15:55] VITALS: BP 140/71
--- NOTE | 2016-11-08 18:17 | NUR ---
PT SITTING UP IN BED FAMILY AT BEDSIDE DENIES NEEDS
--- NOTE | 2016-11-08 19:30 | NUR ---
ASSESSMENT COMPLETE, DENIES NEEDS AT THIS TIME. HOB UP SR UP X2, C/L IN REACH. CONTINUE TO MONITOR. TPN INFUSING W/O DIFF VIA PUMP AT 75CC/HR TO RT JUG TL , SENAITG CDI.
[2016-11-08 21:37] VITALS: BP 125/62
[2016-11-09] VITALS (13 sets, daily range): BP systolic 130–171; BP diastolic 60–79
--- NOTE | 2016-11-09 04:11 | NUR ---
EYES CLOSED, RESP EVEN AND UNLAB WITH NO S/S OF ACUTE DISTRESS NOTED. C/L IN REACH.
[2016-11-09 05:39] LABS: BASOPHILS 0.4 % (0.0-2.0); EOSINOPHILS 6.7 % (0-7); HEMATOCRIT 24.6 % (36.0-48.0); HEMOGLOBIN 7.7 g/dL (12-16); IMMATURE GRANULOCYTES 0.7 % (0-5); LYMPHOCYTES 14.1 % (15-50); MCH 27.3 pg (26.0-34.0); MCHC 31.3 g/dL (31.0-37.0); MCV 87.2 fL (80.0-100.0); MEAN PLATELET VOLUME 10.6 fL (7.4-10.4); MONOCYTES 14.3 % (2-11); NEUTROPHILS 63.8 % (40-80); PLATELET COUNT 206 10x3/uL (130-400); RBC 2.82 10x6/uL (4.00-5.40); RDW 14.5 % (11.5-14.5); WBC 4.6 10x3/uL (4.8-10.8)
[2016-11-09 06:08] LABS: ANION GAP 11.1 mmol/L (8-16); BILIRUBIN - TOTAL 0.2 mg/dL (0.2-1.3); CALCIUM 8.5 mg/dL (8.5-10.1); CARBON DIOXIDE 22.2 mmol/L (21.0-32.0); CREATININE - SERUM 1.2 mg/dL (0.6-1.3); MAGNESIUM - SERUM 1.5 mg/dL (1.8-2.4); PHOSPHOROUS 2.5 mg/dL (2.5-4.9); POTASSIUM - SERUM 3.3 mmol/L (3.5-5.1); PROTEIN - SERUM 5.3 g/dL (6.4-8.2)
[2016-11-09 06:10] LABS: ALBUMIN 3.1 g/dL (3.4-5.0)
--- NOTE | 2016-11-09 07:21 | NUR ---
PT SITTING UP IN BED DENIES NEEDS WILL CONT TO MONITOR
[2016-11-09 07:43] LABS: APTT 33.6 SECONDS (22.8-39.4); INR 1.21 (0.85-1.17); PROTIME 15.2 SECONDS (11.6-15.0)
--- NOTE | 2016-11-09 08:04 | NUR ---
CALLED BRYANT IN PHARM SHE IS GOING TO MAKE ADDITIVES TO TPN DR PLATT ORDERED.
--- NOTE | 2016-11-09 08:21 | NUR ---
WAITING ON MEDICATIONS FROM PHARM AND ALSO PT JUST LEFT FOR PARACENTESIS. WE ARE UNABLE TO HANG MORE THAN ONE IVPB AT A TIME DUE TO ALL PORTS OF CVL ALREADY IN USE. WILL HANG IRON IF AVAILABLE ONCE MAG IS DONE AND PT BACK FROM PROCEDURE AND THEN POTASSIUM
--- NOTE | 2016-11-09 09:15 | NUR ---
PT BACK FROM PARACENTESIS. 3L REMOVED. PT ALERT AND ORIENTED DENIES NEEDS. STATES SHE FEELS "SO MUCH BETTER!". PT DAUGHTER IN ROOM AT BEDSIDE. DR HUNT ROUNDTALON ON PT, ORDERED EGD FOR TOMORROW AM. CONSENTS SIGNED AND ON THE CHART. PT VS ARE WNL. DRESSING TO LOWER LEFT QUADRANT CDI. WILL CONT TO MONITOR.
--- NOTE | 2016-11-09 10:15 | OP ---
PATIENT NAME: DIANA GRIMALDO MEDICAL RECORD: [id number] :40 LOCATION:D. D.2137 ADMISSION DATE:11/01/16 SURGEON: LING HUNT DO DATE OF OPERATION: 11/03/2016 PROCEDURE: EGD with biopsies. SCOPE: Olympus video gastroscope. MEDICATIONS: Propofol 300 mg IV per anesthesia. INDICATIONS FOR PROCEDURE: Dysphagia, GERD, heartburn. FINDINGS: Informed consent was given. The patient was made comfortable with the above medication. After reaching an adequate level of sedation by slow IV push, the patient was placed on her left side. The endoscope was then advanced under direct visualization through the mouth to the second portion of the duodenum. The upper, middle and distal thirds of the esophagus appeared normal. At the GE junction, there was some mild LA class A reflux induced esophagitis present. The scope was advanced into the stomach and severe, diffuse, edematous gastritis was present. The gastritis itself could be consistent with the patient's anasarca, which she is having in relation to her hydronephrosis from her ureteral complications. She also had an approximately 15 mm size ulcerated site in length in the antrum of the stomach down to the pyloric channel. This appeared mass like and occupied approximately 60% of the diameter of the end of the stomach to the pylorus. The entire site was ulcerated. Multiple biopsies were taken with cold forceps. There was an also ulcerated site proximal to this in the body of the stomach, which measured approximately 1.5 x 1 cm in size. There was some oozing of blood around that site. No biopsies were taken. Random biopsies were taken of the gastritis. The scope was able to be advanced beyond the ulcerated mass to the duodenum where the bulb and second portion appeared normal. The scope was withdrawn from the patient. The patient tolerated the procedure well and there were no complications. Estimated blood loss approximately 5 cc. IMPRESSIONS: 1. Large ulcerated mass measuring approximately 15 cm in length x 4 cm in diameter and occupying approximately 50% to 60% of the lumen of the distal stomach to the pylorus. This does not necessary look like a cancerous mass, but could potentially be cancerous. Multiple biopsies were taken. 2. Diffuse gastritis likely related to anasarca. Biopsies taken. 3. Mild reflux-induced esophagitis at the GE junction. PLAN AND RECOMMENDATIONS: 1. Return to floor. 2. Continue treatment of ureteral disease. 3. Await biopsy results. 4. Continue Protonix IV and transition to oral when tolerating. 5. Further planning and recommendations will be dependent on results of biopsy specimens. TRANSINT:[id number] Voice Confirmation ID: [id number] DOCUMENT ID: [id number] OPERATIVE REPORT [id number] DIANA GRIMALDO,LING Kramer DO at 1015 CC: [id number] DICTATION DATE: 11/03/16 1622 FARM OR RANCH ANIMAL CARETAKER: 11/04/16 0351 ADM IN [facility] [address] [id number]
--- NOTE | 2016-11-09 10:21 | NUR ---
FERROUS SULFATE CURRENTLY RUNNING. WHEN FINISHED STUDENT NURSE WILL HANG IV POTASSIUM.
--- NOTE | 2016-11-09 14:05 | NUR ---
Nutrition follow-up: Pt NPO for paracentesis -> 3 Liters removed PPN, D10,4.25%AA, infusing @ 40 ml/hr 20% 250 ml intralipids Q48 hours Wt: 124# labs reviewed PPN + lipids are providin kcal (13 kcal/kg ABW) 41 gm protein (0.7 gm protein/kg ABW) Pt is currently meeting ~50% of minimal estimated energy needs and ~70% estimated protein needs. RDN following.
[2016-11-09 14:22] LABS: LYMPH - BF 30 %; MACROPHAGES BF 67 %; MESOTHELIALS BF 1 %; NEUT - BF 2 %
--- NOTE | 2016-11-09 15:30 | NUR ---
REMOVED PT CVL DRESSING (PEELING UP). PUT NEW CVL DRESSING ON STERILE TECHNIQUE INITIATED BIO PATCH ON. SIGNED AND DATED
--- NOTE | 2016-11-09 15:59 | NUR ---
DR MIN ORDERED FOR MARADIAGA TO BE DC. DC 14F MARADIAGA WITH 9CC STERILE WATER OUT OF BALLOON. PT TOLERATED WELL. CALLED CENTRAL SPOKE WITH HILLARY FOR HER TO BRING UP STRAIGHT CATHS 12-14F.
--- NOTE | 2016-11-09 18:29 | NUR ---
PT SITTING UP IN BED DAUGHTER AT BEDSIDE DENIES NEEDS AT THIS TIME WILL CONT TO MONITOR
--- NOTE | 2016-11-09 19:20 | NUR ---
ALERT/AWAKE SITTING UP IN BED TALKING TO FAMILY MEMBER. DENIES PAIN OR ANY NEEDS. IV IN RT IJ INTACT PATENT. DRSG C/D/I. FLUSHED ALL LINES. SCD'S AND TEDS ON BILATERAL LEGS. ORIENTED TO CALL LIGHT FOR ANY NEEDS.
[2016-11-10] VITALS: BP 135/69
--- NOTE | 2016-11-10 02:52 | NUR ---
REQUESTED ASSISTANCE TO REPOSITION TO RIGHT SIDE WITH PILLOW TO BACK. NO OTHER NEEDS VOICED.
[2016-11-10 04:00] VITALS: BP 151/82
[2016-11-10 05:57] LABS: BASOPHILS 0.5 % (0.0-2.0); EOSINOPHILS 6.3 % (0-7); HEMATOCRIT 28.8 % (36.0-48.0); HEMOGLOBIN 8.9 g/dL (12-16); IMMATURE GRANULOCYTES 1.4 % (0-5); LYMPHOCYTES 10.9 % (15-50); MCH 27.1 pg (26.0-34.0); MCHC 30.9 g/dL (31.0-37.0); MCV 87.5 fL (80.0-100.0); MEAN PLATELET VOLUME 10.8 fL (7.4-10.4); MONOCYTES 13.3 % (2-11); NEUTROPHILS 67.6 % (40-80); PLATELET COUNT 238 10x3/uL (130-400); RBC 3.29 10x6/uL (4.00-5.40); RDW 14.8 % (11.5-14.5)
[2016-11-10 06:08] LABS: WBC 7.3 10x3/uL (4.8-10.8)
[2016-11-10 06:15] LABS: ALBUMIN 3.5 g/dL (3.4-5.0); BILIRUBIN - TOTAL 0.2 mg/dL (0.2-1.3); CALCIUM 8.9 mg/dL (8.5-10.1); CARBON DIOXIDE 22.1 mmol/L (21.0-32.0); CREATININE - SERUM 1.3 mg/dL (0.6-1.3); PHOSPHOROUS 2.3 mg/dL (2.5-4.9); PROTEIN - SERUM 5.8 g/dL (6.4-8.2)
[2016-11-10 06:17] LABS: MAGNESIUM - SERUM 1.9 mg/dL (1.8-2.4); POTASSIUM - SERUM 4.1 mmol/L (3.5-5.1)
--- NOTE | 2016-11-10 07:25 | NUR ---
AWAKE, ALERT AND ORIETNED, DENIES NEEDS, ASSESSMENT COMPLETE, BED LOWEST POSITION, CALL LIGHT IN REACH, WILL CONTINUE TO MONITOR
[2016-11-10 08:00] VITALS: BP 142/77
--- NOTE | 2016-11-10 10:39 | NUR ---
IV PATENT. NURSE AT ASSISTING WITH NEEDS. WILL CONT. PLAN OF CARE.
--- NOTE | 2016-11-10 10:45 | NUR ---
LEFT FLOOR FOR EGD
[2016-11-10 12:00] VITALS: BP 147/66
--- NOTE | 2016-11-10 12:30 | NUR ---
BACK FROM EGD, HUNG NEW BAG OF TPN AND ZOFRAN, DENIES NEEDS, CALL LIGHT IN REACH
[2016-11-10 16:09] VITALS: BP 148/82
--- NOTE | 2016-11-10 19:50 | NUR ---
SPOKE WITH DR HUNT VIA PHONE. NEW ORDER RECEIVED TO CONSULT GENERAL SURGERY TOMORROW MORNING FOR GASTIC OUTLET OBSTRUCTION D/T GASTRIC MASS. ORDER PLACED IN CPOE.
[2016-11-10 20:00] VITALS: BP 137/61
[2016-11-11] VITALS (11 sets, daily range): BP systolic 126–158; BP diastolic 63–77
--- NOTE | 2016-11-11 06:33 | NUR ---
DR PLATT HERE TO SEE PT, NEW ORDERS RECEIVED AND NOTED.
[2016-11-11 06:55] LABS: BASOPHILS 0.8 % (0.0-2.0); EOSINOPHILS 7.3 % (0-7); HEMATOCRIT 25.2 % (36.0-48.0); HEMOGLOBIN 7.8 g/dL (12-16); IMMATURE GRANULOCYTES 1.6 % (0-5); LYMPHOCYTES 12.5 % (15-50); MCH 27.3 pg (26.0-34.0); MCV 88.1 fL (80.0-100.0); MEAN PLATELET VOLUME 10.6 fL (7.4-10.4); MONOCYTES 14.1 % (2-11); NEUTROPHILS 63.7 % (40-80); RBC 2.86 10x6/uL (4.00-5.40)
[2016-11-11 06:56] LABS: PLATELET COUNT 168 10x3/uL (130-400); WBC 5.1 10x3/uL (4.8-10.8)
[2016-11-11 07:08] LABS: ANION GAP 12.2 mmol/L (8-16); CALCIUM 8.8 mg/dL (8.5-10.1); CARBON DIOXIDE 21.6 mmol/L (21.0-32.0); CREATININE - SERUM 1.4 mg/dL (0.6-1.3); MAGNESIUM - SERUM 1.7 mg/dL (1.8-2.4); PHOSPHOROUS 2.6 mg/dL (2.5-4.9); POTASSIUM - SERUM 3.8 mmol/L (3.5-5.1)
--- NOTE | 2016-11-11 07:36 | NUR ---
RUSSEL ROUNDTALON- RECEIVED REPORT FROM VINCENT MARROQUIN. PT IS SITTING UP IN BED WITH EYES OPEN RESTING. DAUGHTER JUST GOT TO BEDSIDE. ALERT AND ORIENTED. RIGHT IJ SEEN WITH ZOFRAN RUNNING AT 4.7 AND TPN RUNNING AT 40CC/HR. ON ROOM AIR. NO MONITOR. BEDSIDE COMMODE AT BEDSIDE. SCDS ARE ON. NO NEED AT CURRENT TIME. WILL CONTINUE TO MONITOR AND CONTINUE WITH PLAN OF CARE.
--- NOTE | 2016-11-11 11:10 | OP ---
PATIENT NAME: DIANA GRIMALDO MEDICAL RECORD: [id number] :40 LOCATION:D. D.2137 ADMISSION DATE:11/01/16 SURGEON: LING HUNT DO DATE OF OPERATION: 11/10/2016 PROCEDURE: EGD with biopsies. SCOPE: Olympus video gastroscope. MEDICATIONS: Propofol 300 mg IV per anesthesia. INDICATIONS FOR PROCEDURE: Dysphagia, partial gastric outlet obstruction secondary to previously identified gastric mass bypass on a recent EGD. FINDINGS: Informed consent was given. The patient was made comfortable with the above medication. After reaching an adequate level of sedation by slow IV push, the patient was placed on her left side. The endoscope was then advanced under direct visualization through the mouth to the second portion of the duodenum. As stated prior, the upper, middle, and distal thirds of the esophagus appeared normal. There was some mild LA class A reflux induced esophagitis at the GE junction. In the stomach, there was severe, diffuse, edematous gastritis present within the fundus and body of the stomach. As we approached the antrum, this turned into a gastric mass, which is ulcerated on the superficial surface. It is protruding in the lumen of the stomach approximately 1-3 cm. It is compose of nearly 75% of the circumference of the luminal diameter of the stomach and was approximately 15 cm in length from the pylorus approximately. This was visualized last week and at that time, it did not necessary look like a cancerous mass, but on reinspection does, it is very concerning for cancerous mass. Multiple biopsies were again taken as they were nondiagnostic in the last procedure. Tunneling technique was performed to try to get deeper into the tissue. Biopsies were also taken at the body of the stomach where the diffuse gastritis was present. These will be submitted to pathology for further review. The pyloric channel was looked at closely. Due to the edematous, nature of the mucosa as well as the mass, which is approaching and possibly involving the pylorus, there is a significant amount of obstruction related to this gastric mass. That being said, the scope was able to pass through the pylorus into the bulb and the second portion of the duodenum. Random biopsies were taken from the first part of the duodenum based on a history of possible celiac disease. Scope was withdrawn from the patient. The patient tolerated the procedure well and there were no complications. ESTIMATED BLOOD LOSS: Approximately 5 cc. IMPRESSION: 1. Large ulcerated mass measuring approximately 15 cm in length x 4-5 cm in diameter and occupying approximately 75% of the lumen of the distal stomach to the pylorus. This is concerning for cancerous mass and it likely is causing a partial gastric outlet obstruction. 2. Diffuse edematous gastritis. This could be related to anasarca as previously noted or this could be an extension or a nidus for a cancerous growth of tissue. Biopsies were taken. 3. Mild reflux-induced esophagitis at the GE junction. PLAN AND RECOMMENDATIONS: 1. Return to floor. OPERATIVE REPORT [id number] DIANA GRIMALDO 2. Continue to await for ascites fluid studies. 3. I recommend surgical evaluation of the distal gastric mass for consideration and resection based on symptoms. 4. Recommend a CT abdomen with oral and IV contrast. If nephrology feels that the creatinine and renal function is stable, enough to do so. 5. Further recommendations pending biopsy results. TRANSINT:[id number] Voice Confirmation ID: [id number] DOCUMENT ID: [id number] LING HUNT DO at 1110 CC: [id number] DICTATION DATE: 11/10/16 1139 KITCHEN FOOD SERVER: 11/10/16 1308 ADM IN [facility] [address] [place] [address]
--- NOTE | 2016-11-11 12:38 | NUR ---
Nutrition Follow Up: Pt reported feeling that everything "gets stuck" in her throat when she eats/drinks. She stated that when she does eat/drink - even water - she has pain with N/V. Pt refused supplements at this time. Pt is eating 10% meal avg on a regular mechanical soft diet. She is receiving PPN of D10 AA 4.25% @ 40 ml/hr and 250 ml 20% lipids every 48 hours. Wt stable. +BM 11/08/16. Labs and meds noted. Rec continue current diet as tolerated. Rec continue current PPN and lipid regimen which is providing 740 kcal and [address] will continue to monitor pt progress.
--- NOTE | 2016-11-11 13:04 | NUR ---
CALLED DR. ROLAND' CELL PHONE REQUESTED BY DR. MIN (DR. MIN CALLED THIS MORNING AND WANTED ME TO CALL HIM REGARDING PT SOMETIME TODAY) NO ANSWER RECEIVED. WILL TRY TO CALL AGAIN SOON.
--- NOTE | 2016-11-11 13:43 | NUR ---
DR. PRAJAPATI IN ROOM. INFORMED HIM THAT HECTOR WITH XRAY INFORMED ME THAT PT IS NEEDING SOMETHING TO HELP EXCRETE BARIUM CONTRAST THAT PT STILL HAS IN SYSTEM FROM PROCEDURE A FEW DAYS AGO SO THAT THEY CAN DO A CT OF ABDOMEN ORDERED. I INFORMED DR. PRAJAPATI THAT HECTOR WITH XRAY HAD CT OF ABDOMEN RESCHEDULED FOR TOMORROW SO THAT PT CAN TAKE SOMETHING TO HELP EXCRETE BARIUM CONTRAST. DR. PRAJAPATI STATES " I WILL TAKE CARE OF THAT, THANKYOU".
--- NOTE | 2016-11-11 15:45 | NUR ---
MARADIAGA CATHETER INSERTED ORDERED (14F) WITH ASSISTANCE FROM VINCENT TROTTER. 10CC OF SALINE INSERTED INTO BALLOON SYRINGE. URINE FLOW SEEN. TOLERATED WELL. WILL CONTINUE MONITOR.
--- NOTE | 2016-11-11 16:58 | NUR ---
BLOOD TRANSFUSING ORDERED. PT DENIES ANY ABNORMAL SYMPTOMS AT THIS TIME. INSTRUCTED PT TO INFORM STAFF IF FEELING ANY UNUSUAL S/S. PT AGREED. WILL CONTINUE TO MONITOR.
--- NOTE | 2016-11-11 18:17 | NUR ---
PT IS CURRENTLY LAYING IN BED ON BACK WITH NO C/O OF PAIN OR DISTRESS. BLOOD IS CURRENTLY TRANSFUSING ORDERED. FREQUENT VITAL SIGNS ARE BEING TAKEN PER PROTOCOL. WILL CONTINUE TO MONITOR.
--- NOTE | 2016-11-11 19:55 | NUR ---
PT LYING IN BED TALKING WITH LENNOX, ASSESSMENT COMPLETED, NO ACUTE DISTRESS NOTED, FLUIDS TO R IJ INFUSING WITH EASE, MARADIAGA DRAINING TO GRAVITY, DENIES PAIN OR NEEDS AT THIS TIME, REFUSES SCD'S, SR'S UP ,CL IN REACH, WILL MONITOR
--- NOTE | 2016-11-11 21:25 | NUR ---
BLOOD STARTED TRANSFUSING, VSS, INSTRUCTED ON SS OF RX, UNDERSTANDING VOICED, NO DISTRESS NOTED, WILL MONITOR
--- NOTE | 2016-11-11 21:45 | NUR ---
CONTINUES TO TOLERATE BLOOD INFUSION WITH NO SS OF RX NOTED, DENIES PAIN, SOB, ITCHING OR OTHER ABNORMAL SS, WILL CONTINUE TO MONITOR
--- NOTE | 2016-11-11 22:15 | NUR ---
RESTING WITH EYES CLOSED, RESP WITH EASE, BLOOD INFUSING WITH NO DISTRESS NOTED, SR'S UP, CL IN REACH
--- NOTE | 2016-11-11 23:15 | NUR ---
ASSISTED TO RESTROOM WITH NO PROBLEMS, BLOOD CONTINUES TO INFUSE WITH NO SS OF RX NOTED, WILL CONTINUE TO MONITOR
[2016-11-12] VITALS (7 sets, daily range): BP systolic 144–155; BP diastolic 55–82
--- NOTE | 2016-11-12 01:10 | NUR ---
VSS, NO DISTRESS NOTED, DENIES PAIN OR NEEDS, CL IN REACH
--- NOTE | 2016-11-12 03:45 | NUR ---
NO CHANGES SINCE LAST ROUND, SAFETY MEASURES IN PLACE, CL IN REACH
[2016-11-12 05:04] LABS: BASOPHILS 0.8 % (0.0-2.0); EOSINOPHILS 5.1 % (0-7); IMMATURE GRANULOCYTES 1.2 % (0-5); LYMPHOCYTES 12.4 % (15-50); MCH 27.8 pg (26.0-34.0); MCHC 31.9 g/dL (31.0-37.0); MCV 87.2 fL (80.0-100.0); MEAN PLATELET VOLUME 10.3 fL (7.4-10.4); MONOCYTES 11.8 % (2-11); NEUTROPHILS 68.7 % (40-80); RDW 14.9 % (11.5-14.5)
[2016-11-12 05:05] LABS: HEMATOCRIT 35.4 % (36.0-48.0); HEMOGLOBIN 11.3 g/dL (12-16); PLATELET COUNT 210 10x3/uL (130-400); RBC 4.06 10x6/uL (4.00-5.40); WBC 7.3 10x3/uL (4.8-10.8)
[2016-11-12 05:23] LABS: ALBUMIN 3.6 g/dL (3.4-5.0); ANION GAP 14.1 mmol/L (8-16); BILIRUBIN - TOTAL 0.6 mg/dL (0.2-1.3); CARBON DIOXIDE 21.8 mmol/L (21.0-32.0); CREATININE - SERUM 1.4 mg/dL (0.6-1.3); MAGNESIUM - SERUM 1.6 mg/dL (1.8-2.4); POTASSIUM - SERUM 3.9 mmol/L (3.5-5.1)
--- NOTE | 2016-11-12 19:10 | NUR ---
ASSESSMENT DONE. PT LAYING IN BED RESTING. EYES CLOSED, RESP EVEN AND UNLABORED. EASILY AWAKEN. PT DENIES PAIN OR NAUSEA AT THIS TIME. PT'S DAUGHTER IN ROOM. PT DENIES NEEDS AT THIS TIME. CALL LIGHT WITH IN REACH. WILL CONT. TO MONITOR.
--- NOTE | 2016-11-12 23:48 | NUR ---
ASSISTED PT TO RESTROOM. GAIT STEADY, BUT PT IS WEAK. INSTRUCTED PT TO CALL WHEN FINISHED. WILL CONT. TO MONITOR.
[2016-11-13] VITALS: BP 129/67
--- NOTE | 2016-11-13 00:37 | NUR ---
PT SLEEPING. OPENS EYES WHEN NURSE ENTERS ROOM. DENIES NEEDS AT THIS TIME. CALL LIGHT WITH IN REACH. WILL CONT. TO MONITOR.
--- NOTE | 2016-11-13 02:14 | NUR ---
ASSISTED PT WITH ORAL CARE. PT DENIES PAIN AND NAUSEA AT THIS TIME. DENIES OTHER NEEDS AT THIS TIME. CALL LIGHT WITH IN REACH. WILL CONT. TO MONITOR.
[2016-11-13 04:00] VITALS: BP 146/73
--- NOTE | 2016-11-13 05:10 | NUR ---
AGREE WITH EMPLOYMENT INSTRUCTIONAL ASSOCIATE'S ASSESSMENT. CONTINUE PLAN OF CARE.
[2016-11-13 05:35] LABS: BASOPHILS 0.4 % (0.0-2.0); HEMOGLOBIN 10.8 g/dL (12-16); LYMPHOCYTES 9.7 % (15-50); MCH 27.8 pg (26.0-34.0); MCHC 31.8 g/dL (31.0-37.0); MCV 87.4 fL (80.0-100.0); MEAN PLATELET VOLUME 10.7 fL (7.4-10.4); MONOCYTES 18.1 % (2-11); NEUTROPHILS 65.8 % (40-80); PLATELET COUNT 192 10x3/uL (130-400); RBC 3.89 10x6/uL (4.00-5.40); RDW 15.2 % (11.5-14.5); WBC 6.8 10x3/uL (4.8-10.8)
[2016-11-13 06:04] LABS: ALBUMIN 3.5 g/dL (3.4-5.0); ANION GAP 16.2 mmol/L (8-16); BILIRUBIN - TOTAL 0.4 mg/dL (0.2-1.3); CALCIUM 8.9 mg/dL (8.5-10.1); CARBON DIOXIDE 21.2 mmol/L (21.0-32.0); CREATININE - SERUM 1.7 mg/dL (0.6-1.3); PHOSPHOROUS 3.3 mg/dL (2.5-4.9); POTASSIUM - SERUM 3.4 mmol/L (3.5-5.1)
--- NOTE | 2016-11-13 06:22 | NUR ---
PT SLEEPING. HOB ELEVATED. AWAKEN BY NURSE ENTERING ROOM. DENIES NEEDS. NO DISTRESS NOTED. CALL LIGHT WITH IN REACH. WILL CONT. TO MONITOR.
--- NOTE | 2016-11-13 07:50 | NUR ---
AM ROUNDING- RECEIVED REPORT FROM JEWELRY TECHNICIAN NURSE BRANDON KANG. PT IS CURRENTLY LAYING IN BED ON BACK WITH EYES OPEN RESTING. RIGHT IJ SEEN TO RIGHT SIDE OF NECK WITH TPN RUNNING AT 40CC/HR AND ZOFRAN RUNNING AT 4.6CC/HR. ON ROOM AIR. NO MONITOR. MARADIAGA CATHETER SEEN WITH YELLOW URINE. NO NEED AT CURRENT TIME. WILL CONTINUE TO MONITOR AND CONTINUE WITH PLAN OF CARE.
[2016-11-13 08:26] VITALS: BP 148/71
[2016-11-13 12:30] VITALS: BP 149/76
[2016-11-13 16:00] VITALS: BP 145/73
--- NOTE | 2016-11-13 17:43 | NUR ---
PT SITTING IN BED LAYING ON BACK WITH EYES OPEN RESTING. DAUGHTER IS AT BEDSIDE. PT DENIES ANY NEED AT CURRENT TIME. WILL CONTINUE TO MONITOR.
[2016-11-13 20:19] VITALS: BP 140/70
--- NOTE | 2016-11-13 21:34 | NUR ---
PT VOMITED UP MEDS. REFUSES TO TRY AGAIN. STATES SHE DOES NOT THINK SHE COULD TOLERATE IT. ONCE MEDS WERE EXPELLED PT STATES NAUSEA IMPROVES. PT RESTING NOW. HOB ELEVATED. CALL LIGHT WITH IN REACH. WILL CONT. TO MONITOR.
--- NOTE | 2016-11-13 22:31 | NUR ---
PT SLEEPING, EASILY AWAKEN. DENIES NEEDS. STATES N/V HAS RESOLVED FOR NOW. CALL LIGHT WITH IN REACH. WILL CONT. TO MONITOR.
[2016-11-14] VITALS: BP 136/70
--- NOTE | 2016-11-14 02:36 | NUR ---
PT SLEEPING. APPEARS COMFORTABLE. RESP EVEN AND UNLABORED. WILL CONT. TO MONITOR. CALL LIGHT WITH IN REACH.
[2016-11-14 04:00] VITALS: BP 143/65
--- NOTE | 2016-11-14 05:02 | NUR ---
PT WITH INCREASE SOB AFTER AMBULATING TO RESTROOM. O2 92% ON 2L. PT STATES SHE FEELS SO FULL WITH FLUID THAT SHE CANNONT TAKE A BIG ENOUGH BREATH. O2 AT 2L VIA NC APPLIED. WILL CONT. TO MONITOR.
--- NOTE | 2016-11-14 05:34 | NUR ---
PT STATES SOB IMPROVED WITH O2. CRACKLES HEARD UPPER LEFT LOBE. RIGHT SIDE CLEAR. WILL CONT. TO MONITOR.
[2016-11-14 05:58] LABS: BASOPHILS 0.5 % (0.0-2.0); EOSINOPHILS 4.6 % (0-7); HEMATOCRIT 34.4 % (36.0-48.0); HEMOGLOBIN 10.8 g/dL (12-16); IMMATURE GRANULOCYTES 1.2 % (0-5); LYMPHOCYTES 9.1 % (15-50); MCH 27.4 pg (26.0-34.0); MCHC 31.4 g/dL (31.0-37.0); MCV 87.3 fL (80.0-100.0); MEAN PLATELET VOLUME 10.6 fL (7.4-10.4); MONOCYTES 17.8 % (2-11); NEUTROPHILS 66.8 % (40-80); PLATELET COUNT 202 10x3/uL (130-400); RBC 3.94 10x6/uL (4.00-5.40); RDW 15.7 % (11.5-14.5); WBC 7.5 10x3/uL (4.8-10.8)
[2016-11-14 06:14] LABS: ANION GAP 14.9 mmol/L (8-16); CALCIUM 9.1 mg/dL (8.5-10.1); CARBON DIOXIDE 22.4 mmol/L (21.0-32.0); CREATININE - SERUM 1.4 mg/dL (0.6-1.3); MAGNESIUM - SERUM 1.8 mg/dL (1.8-2.4); PHOSPHOROUS 4.1 mg/dL (2.5-4.9); POTASSIUM - SERUM 3.3 mmol/L (3.5-5.1)
--- NOTE | 2016-11-14 07:05 | NUR ---
RECEIVED REPORT. ASSUMED CARE OF PATIENT. RESTING IN BED WITH EYES OPEN. DENIES NEEDS. RESP EVEN AND UNLABORED. ABD ASCITES NOTED AND PATIENT COMPLAINS OF SOME SLIGHT DISCOMFORT TO BILATERAL LOWER LATERAL SIDES OF ABD. FLUIDS INFUSING ORDERED. NO DISTRESS.
[2016-11-14 08:27] VITALS: BP 143/69
--- NOTE | 2016-11-14 09:33 | NUR ---
PATIENT ATTEMPTED TAKING PO MEDS CRUSHED IN APPLE SAUCE, PATIENT ABLE TO TOLERATED MEDICATIONS FOR ABOUT 5 MINUTES AND VOMITED X 3. UNABLE TO KEEP PO INTAKE DOWN. PATIENT SITTING UP IN BED AT 90DEGREEES. PATIENTS DAUGHTER AT BEDSIDE. NO DISTRESS. CALL LIGHT WITHIN REACH.
--- NOTE | 2016-11-14 12:00 | NUR ---
K+ RIDER #1 FRANDY. CALL LIGHT WITHIN REACH. FAMILY AT BEDSIDE. NO DISTRESS. DENIES NEEDS.
--- NOTE | 2016-11-14 13:00 | NUR ---
K+ RIDER # 2 HUNG. CALL LIGHT WITHIN REACH. NO DISTRESS. FAMILY REMAINS AT BEDSIDE. NO DISTRESS.
[2016-11-14 13:36] VITALS: BP 145/70
--- NOTE | 2016-11-14 16:30 | NUR ---
DR. MCADAMS HERE FOR ROUNDS. DUE TO PATIENT NOT ABLE TO TOLERATE ANYTHING PO THAT SHE CONSUMES, PATIENT HAS BEEN GIVEN NPO STATUS, ABLE TO HAVE ICE CHIPS AND SMALL SIPS IF PATIENT REQUESTS THEM.
--- NOTE | 2016-11-14 18:26 | NUR ---
RESTING IN BED WITH EYES OPEN. FAIMLY AT BEDSIDE. DENIES NEEDS. CALL LIGHT WITHIN REACH.
[2016-11-14 18:52] VITALS: BP 147/69
[2016-11-14 19:00] VITALS: BP 142/70
[2016-11-15] VITALS: BP 155/74
--- NOTE | 2016-11-15 00:30 | NUR ---
DOCUMENT CONTROLLER AT BEDSIDE FOR VS. NEEDS ADDRESSED AT THIS TIME. CALL LIGHT IN REACH. WILL CONT TO MONITOR.
[2016-11-15 04:00] VITALS: BP 147/73
[2016-11-15 05:06] LABS: BASOPHILS 0.5 % (0.0-2.0); EOSINOPHILS 3.2 % (0-7); HEMATOCRIT 35.7 % (36.0-48.0); HEMOGLOBIN 11.3 g/dL (12-16); IMMATURE GRANULOCYTES 0.8 % (0-5); LYMPHOCYTES 6.6 % (15-50); MCH 27.6 pg (26.0-34.0); MCHC 31.7 g/dL (31.0-37.0); MCV 87.1 fL (80.0-100.0); MONOCYTES 18.1 % (2-11); NEUTROPHILS 70.8 % (40-80); PLATELET COUNT 196 10x3/uL (130-400); RDW 15.6 % (11.5-14.5); WBC 7.8 10x3/uL (4.8-10.8)
[2016-11-15 05:22] LABS: ANION GAP 16.1 mmol/L (8-16); CALCIUM 9.3 mg/dL (8.5-10.1); CARBON DIOXIDE 23.1 mmol/L (21.0-32.0); CREATININE - SERUM 1.5 mg/dL (0.6-1.3); MAGNESIUM - SERUM 1.6 mg/dL (1.8-2.4); PHOSPHOROUS 4.2 mg/dL (2.5-4.9); POTASSIUM - SERUM 3.2 mmol/L (3.5-5.1)
--- NOTE | 2016-11-15 06:40 | NUR ---
RECEIVED PT REPORT. WILL CONTINUE PLAN OF CARE. NO OTHER NEEDS AT THIS TIME. WILL CONTINUE TO [facility].
[2016-11-15 07:41] VITALS: BP 139/69
[2016-11-15 08:33] LABS: APTT 34.8 SECONDS (22.8-39.4); INR 1.13 (0.85-1.17); PROTIME 14.4 SECONDS (11.6-15.0)
--- NOTE | 2016-11-15 09:23 | NUR ---
PT IS ALERT. ASSESSMENT DONE PER FLOWSHEET. NO OTHER NEEDS AT THIS TIME. WILL CONTINUE TO MONITOR.
--- NOTE | 2016-11-15 12:12 | NUR ---
PT IS ALERT. NO SS OF DISTRESS AT THIS TIME. WILL CONTINUE TO MONITOR.
--- NOTE | 2016-11-15 13:52 | NUR ---
Nutrition Follow Up: Chart reviewed. Pt had paracentesis today. N/V improved with NPO diet. I<O. +BM 11/14/16. Wt loss 8# in the past 5 days - likely r/t fluid. Labs noted. Meds noted including Lasix, Albumin, Zofran. PPN of D10, AA 4.25% @ 40 ml/hr 20% Intralipids 250 ml every 48 hours PPN + Lipids providing 740 kcal/d (~13 kcal/kg) and 41 g protein/d (~0.7 g/kg) Pt is meeting 45% of her est kcal needs and 75% of her est protein needs. RD will continue to monitor pt progress.
[2016-11-15 16:22] VITALS: BP 166/70
--- NOTE | 2016-11-15 20:16 | NUR ---
PT AWAKE, ALERT, ORIENTED, ASSISTED WITH MOVING UP IN THE BED, DAUGHTER AT BEDSIDE. PT DENIES ANY ACUTE NEEDS AT THIS TIME, AND PT STATES SHE IS HAVING PAIN, BUT IS NOT WANTING HER PRN PAIN MEDICATION AT THIS TIME. CONTINUE TO MONITOR CLOSELY.
[2016-11-15 21:17] VITALS: BP 140/58
--- NOTE | 2016-11-15 23:59 | NUR ---
PT LYING IN BED, EYES CLOSED, RESPIRATIONS EVEN AND UNLABORED. PT EASILY ROUSABLE TO VERBAL STIMULI. BED LOW, HOB 30 DEGREES, CALL LIGHT IN REACH, SIDE RAILS X 2.
[2016-11-16 00:40] VITALS: BP 136/62
--- NOTE | 2016-11-16 03:52 | NUR ---
PT CALLED TO REPORT HER PUNCTURE SITE FOR LT ABDOMEN FROM RECENT PARACENTESIS WAS CONSTANTLY WEEPING AND SEEPING AND HAD THE BED SOAKING WET. PT WAS GIVEN A BED BATH, A NEW PRESSURE DRESSING WAS PLACED, AND AN ICE PACK PLACED ON HER LEFT ABD QUAD. PT DENIES ANY OTHER NEEDS. PT ALSO TOLERATED HER PRN BUPRONEX FOR PAIN AND HAS BEEN ABLE TO REST. DURING THE BED BATH, I NOTICED SEVERAL RED BLISTERS IN THE LEFT UPPER BACK AND SHOULDER AREA. PT DESCRIBES INTERMITTENT DISCOMFORT IN THAT AREA WITH TWINGES OF PAIN. PT STATES SHE HAS HAD HER SHINGLES VACCINATION.
[2016-11-16 05:57] VITALS: BP 147/67
[2016-11-16 07:13] LABS: ALBUMIN 4.5 g/dL (3.4-5.0); BILIRUBIN - TOTAL 0.35 mg/dL (0.2-1.3); CALCIUM 9.2 mg/dL (8.5-10.1); CARBON DIOXIDE 23.8 mmol/L (21.0-32.0); CREATININE - SERUM 1.3 mg/dL (0.6-1.3); HEMATOCRIT 35.8 % (36.0-48.0); HEMOGLOBIN 11.7 g/dL (12-16); LYMPHOCYTES 5.8 % (15-50); MAGNESIUM - SERUM 1.8 mg/dL (1.8-2.4); MCH 28.2 pg (26.0-34.0); MCHC 32.7 g/dL (31.0-37.0); MCV 86.3 fL (80.0-100.0); MEAN PLATELET VOLUME 9.9 fL (7.4-10.4); NEUTROPHILS 79.4 % (40-80); PHOSPHOROUS 3.7 mg/dL (2.5-4.9); PLATELET COUNT 175 10x3/uL (130-400); RBC 4.15 10x6/uL (4.00-5.40); RDW 15.8 % (11.5-14.5); WBC 9.2 10x3/uL (4.8-10.8)
[2016-11-16 07:15] LABS: POTASSIUM - SERUM 3.8 mmol/L (3.5-5.1)
--- NOTE | 2016-11-16 07:38 | NUR ---
PT IS ALERT. ASSESSMENT DONE PER FLOWSHEET. NO OTHER NEEDS AT THIS TIME. WILL CONTINUE TO MONITOR.
[2016-11-16 08:00] VITALS: BP 139/73
[2016-11-16 12:08] VITALS: BP 130/70
--- NOTE | 2016-11-16 12:32 | NUR ---
WOUND CARE: ASKED TO SEE PATIENT R/T LEFT PARACENTHESIS SITE THAT IS DRAINING. SLIGHT REDNESS SEEN TO LLQ TO LUQ WITH MEASUREMENT OF 18.0 CM X 6.0 CM WITH SATURATED 2 X 2 DRESSING AND OPSITE. REMOVED. SMALL PINPOINT AREA, UNABLE TO PLACE END OF QTIP IN IT. SEROSANFUINOUS DRAINAGE, SLIGHTLY ORGANE TINT TO IT SEEN. THIS AREA IS FIRM TO PALPATION. COVERED WITH DRY 4 X 4, ABD PAD, AND MEDIPORE TAPE. DATED. PATIENT TO GO TO SURGERY TODAY FOR LAP PROCEDURE.
--- NOTE | 2016-11-16 13:33 | NUR ---
PT IS ALERT. NO SS OF DISTRESS AT THIS TIME. WILL CONTINUE TO MONITOR.
[2016-11-16 16:00] VITALS: BP 129/75
--- NOTE | 2016-11-16 19:30 | NUR ---
PT IN OR
--- NOTE | 2016-11-16 20:27 | NUR ---
DR PRAJAPATI CALLED ABOUT THE PATIENTS O2 SAT BEING 94% ON [address] PRAJAPATI ORDERED AN ICU BED AND ABGS
--- NOTE | 2016-11-16 21:05 | NUR ---
PT ARRIVED TO ICU FROM ER. BP 124/69. RR 22. O2 SAT 98% ON OXYMIZER. TEMP 97.7. WT 131.
--- NOTE | 2016-11-17 06:22 | NUR ---
FAMILY AT BEDSIDE. SEE FLOW SHEET IN CHART FOR FURTHER DETAILS.
[2016-11-17 06:35] LABS: BASOPHILS 0.4 % (0.0-2.0); HEMATOCRIT 34.5 % (36.0-48.0); HEMOGLOBIN 10.9 g/dL (12-16); IMMATURE GRANULOCYTES 0.3 % (0-5); LYMPHOCYTES 4.5 % (15-50); MCH 27.9 pg (26.0-34.0); MCHC 31.6 g/dL (31.0-37.0); MCV 88.2 fL (80.0-100.0); MEAN PLATELET VOLUME 10.9 fL (7.4-10.4); MONOCYTES 13.4 % (2-11); NEUTROPHILS 80.4 % (40-80); PLATELET COUNT 181 10x3/uL (130-400); RBC 3.91 10x6/uL (4.00-5.40); RDW 15.7 % (11.5-14.5); WBC 9.4 10x3/uL (4.8-10.8)
[2016-11-17 07:00] LABS: ALBUMIN 3.7 g/dL (3.4-5.0); ANION GAP 18.1 mmol/L (8-16); BILIRUBIN - TOTAL 0.57 mg/dL (0.2-1.3); CALCIUM 8.9 mg/dL (8.5-10.1); CARBON DIOXIDE 23.6 mmol/L (21.0-32.0); CREATININE - SERUM 1.4 mg/dL (0.6-1.3); MAGNESIUM - SERUM 1.7 mg/dL (1.8-2.4); POTASSIUM - SERUM 3.7 mmol/L (3.5-5.1); PROTEIN - SERUM 6.3 g/dL (6.4-8.2)
--- NOTE | 2016-11-17 07:00 | NUR ---
REC'D REPORT AND RESUMED CARE, UP IN BED, AAO, VSS, STATES ONLY HAD PAIN WHEN SHE COUGHS OR MOVES, O2 VIA NC AT 4L, SAT 91%, RIGHT IJTL WITH NS AT 10 CC/HR, AND ZOFRAN GTT INFUSING AT 4 MG/HR, ABDOMEN WITH PREVIOUS LAP INCISIONS COVERED WITH BANDAIDS, CDI, LEFT LATERAL SIDE WITH GAUZE DRESSING SEROUS DRAINAGE NOTED, MARADIAGA TO GRAIVTY WITH CLEAR YELLOW DRAINAGE TO BAG, SCD'S B/L, ASSESSMENT COMPLETE PER FLOWSHEET, REPOSITIONED UP AND TO BACK WITH HEELS FLOATED, CALL LIGHT IN REACH, VOICES NO NEEDS AT THIS TIME
[2016-11-17 07:03] LABS: PHOSPHOROUS 5.1 mg/dL (2.5-4.9)
[2016-11-17 07:15] VITALS: BP 136/75
--- NOTE | 2016-11-17 09:05 | NUR ---
AM MEDS GIVEN WITHOUT DIFFICULTY
--- NOTE | 2016-11-17 09:49 | NUR ---
CM RECEIVED CONSULT TO ASSIST WITH PATIENT REQUESTING TRANSFER TO [facility] IN [place]. CM PLACED CALL TO GLORIA Moya, ORTHOPEDIC CODER, TO INFORM OF PT'S REQUEST FOR TRANSFER TO [facility] AND OBTAIN ADMINISTRATIVE APPROVAL. RADHA Little PLACED CALL TO DR. PLATT'S OFFICE TO DISCUSS TRANSFER AND INFORMED THAT HE IS IN [facility] TODAY. I PLACED CALL TO MICHAEL ONEILL, [employer], TO DISCUSS TRANSFER ORDER. CM WILL AWAIT CALL BACK FROM ROB AND WILL THEN ASSIST ORDERED. YAMILETH VICTORIA RN
--- NOTE | 2016-11-17 09:54 | NUR ---
RADHA RECEIVED CALL BACK FROM [employer], TO INFORM THAT GRACIE VITALE, ADMIN. BILLING MACHINE OPERATOR FOR 11/17/16, HAS GIVEN ADMINISTRATIVE APPROVAL FOR PATIENT'S REQUEST FOR TRANSFER. YAMILETH VICTORIA RN, CM
--- NOTE | 2016-11-17 10:41 | NUR ---
NUTRITION MONITORING & EVAL CHART REVIEWED. PT FOR TX TO FLOOR. CONTINUES PPN AT 40 CC/HR. INTRALIPIDS. RD FOLLOWING
[2016-11-17 11:00] VITALS: BP 130/74
--- NOTE | 2016-11-17 11:00 | NUR ---
NO ACUTE CHANGE FROM PREVIOUS ASSESSMENT, FAMILY AT BEDSIDE, VOICES NO NEEDS AT THIS TIME
--- NOTE | 2016-11-17 12:30 | NUR ---
CLEAR LIQUIDS AND POPSICLE TO BEDSIDE, INDEPENDENT WITH SET UP AND EATING
[2016-11-17 15:00] VITALS: BP 133/80
--- NOTE | 2016-11-17 15:00 | NUR ---
ASSESSMENT COMPLETE, NO ACUTE CHANGE FROM PREVIOUS, VSS, REPOSITIONED UP AND TO LEFT SIDE WITH PILLOW PROPPED TO BACK AND HEELS FLOATED, CALL LIGHT IN CARLOS VOICES NO NEEDS AT THIS TIME
--- NOTE | 2016-11-17 15:13 | NUR ---
RADHA RECEIVED CALL FROM ROBI AT DR. [facility]ATT[facility]S CLINIC TO PROVIDE HIS CONTACT NUMBER TO GIVE TO [facility] TRANSFER TEAM WHEN TRANSFER REQUEST IS CALLED IN. RADHA MOORE, RN SPOKE WITH PATIENT TODAY AND OBTAINED VERBAL CONSENT FROM THE PATIENT THAT SHE IS AGREEABLE TO AND IS REQUESTING TRANSFER TO [facility]. CM PLACED CALL TO [facility] TRANSFER REFERRAL LINE AND SPOKE TO LUC TO INFORM OF MD ORDER FOR TRANSFER. CM PROVIDED REQUESTED PATIENT INFORMATION AND MD CALL BACK INFORMATION. SHE STATED SHE WOULD GET IN TOUCH WITH DR PLATT TO INQUIRE FURTHER ABOUT TRANSFER AND THEN NOTIFY CM OR BEDSIDE RN IF PATIENT HAS BEEN ACCEPTED FOR TRANSFER. CM WILL CONTINUE TO FOLLOW.
--- NOTE | 2016-11-17 15:30 | NUR ---
PC FROM [facility] ACCESS MARKETING EFFECTIVENESS MANAGER THAT PATIENT HAS BEEN ACCEPTED FOR TRANSFER, NO BED AVAILABLE AT THIS TIME
--- NOTE | 2016-11-17 15:45 | NUR ---
PC FROM [facility] TRANSFER [facility], STATUS UPDATE GIVEN, FACESHEET AND TRANSFER AGREEMENT FAXED
--- NOTE | 2016-11-17 16:01 | NUR ---
CM WAS INFORMED FROM BEDSIDE RN (VICENTA) IN ICU THAT PATIENT HAS BEEN ACCEPTED TO [facility] ONCE BED BECOMES AVAILABLE.
--- NOTE | 2016-11-17 16:20 | NUR ---
TRANSFERRED TO [address] VIA BED WITH PERSONNEL X3, NO NAUSEA WITH MOVE, RECEIVING NURSE AT BEDSIDE, AAO, NO NEEDS AT THIS TIME
== END 2016-11-18 04:15 | disposition short-term general hospital (02) | DRG 660 ==
LOC: D.ER 13:39 → D.M2 19:05 → D.ICU 19:05 → D.M2 11-17 17:01
PROVIDERS: Emergency Medicine; General Practice; Internal Medicine Gastroenterology; Internal Medicine Nephrology; Nurse Practitioner Acute Care; Urology; ADMIT Internal Medicine Nephrology
PROC: 0DB68ZX Excision of Stomach, Via Natural or Artificial Opening Endoscopic, Diagnostic (ICD-10-PCS; principal; 2016-11-03 15:30)
PROC: 0T778ZZ Dilation of Left Ureter, Via Natural or Artificial Opening Endoscopic (ICD-10-PCS; 2016-11-04 07:30)
PROC: 0T768DZ Dilation of Right Ureter with Intraluminal Device, Via Natural or Artificial Opening Endoscopic (ICD-10-PCS; 2016-11-04 07:30)
PROC: 05HM33Z Insertion of Infusion Device into Right Internal Jugular Vein, Percutaneous Approach (ICD-10-PCS; 2016-11-08)
PROC: 0W9G3ZZ Drainage of Peritoneal Cavity, Percutaneous Approach (ICD-10-PCS; 2016-11-09)
PROC: 0DB98ZX Excision of Duodenum, Via Natural or Artificial Opening Endoscopic, Diagnostic (ICD-10-PCS; 2016-11-10)
PROC: 0DB68ZX Excision of Stomach, Via Natural or Artificial Opening Endoscopic, Diagnostic (ICD-10-PCS; 2016-11-10)
PROC: 0W9G3ZZ Drainage of Peritoneal Cavity, Percutaneous Approach (ICD-10-PCS; 2016-11-15)
PROC: 0DBS4ZX (ICD-10-PCS; 2016-11-16)
PROC: 0DBT4ZX (ICD-10-PCS; 2016-11-16)
DX: N17.9 Acute kidney failure, unspecified (principal); J90 Pleural effusion, not elsewhere classified; R18.8 Other ascites; N39.0 Urinary tract infection, site not specified; K31.1 Adult hypertrophic pyloric stenosis; I48.91 Unspecified atrial fibrillation; N28.89 Other specified disorders of kidney and ureter; K21.0 Gastro-esophageal reflux disease with esophagitis; K25.9 Gastric ulcer, unspecified as acute or chronic, without hemorrhage or perforation; R63.0 Anorexia; K31.9 Disease of stomach and duodenum, unspecified; K29.70 Gastritis, unspecified, without bleeding; B96.81 Helicobacter pylori [H. pylori] as the cause of diseases classified elsewhere; D50.9 Iron deficiency anemia, unspecified; E87.6 Hypokalemia